=== PATIENT | male | born 1955 | race Caucasian/White ===

== ENCOUNTER 2017-12-06 00:40 | Inpatient (IN) ==
[2017-12-06] MEDS ORDERED: methylPREDNISolone 125 MG/2 ML VIAL IVP ONE (00:49)
[2017-12-06] MEDS ORDERED: Ipratropium/Albuterol Neb 3 ML IH ONE (00:49)
--- NOTE | 2017-12-06 00:57 | Emergency Department Note ---
Disposition Clinical Impression: COPD exacerbation Disposition: Admitted As Inpatient Condition: Good Time of Disposition: 03:39 SOB HPI - General Chief Complaint: ED Shortness of Breath/Dyspnea Stated Complaint: Luis Time Seen by Provider: 12/06/17 00:45 Source: patient, EMS Mode of arrival: EMS Limitations: no limitations Nursing Notes Reviewed: Yes Vital Signs Reviewed: Yes - History of Present Illness Patient is a 62-year-old male with past medical history of COPD. He presents today due to shortness of breath. He states that he has been doing multiple chores at home today, has exerted himself. Just prior to arrival, he had sudden onset shortness of breath, denies any chest pain, nausea, vomiting, fevers, diarrhea, abdominal pain. He says that he usually uses 2-3 L nasal cannula oxygen at home 24 hours a day. EMS says that when they picked him up, he was satting around 98% on 2 L. They transitioned him over to CPAP for work of breathing. They state that his work of breathing improved dramatically. - Related Data Home Medications Medication Instructions Recorded Confirmed Albuterol Sulfate [Albuterol 2 puff IH QID PRN 05/18/16 12/06/17 Inhaler] Budesonide/Formoterol 160/4.5 2 puff IH BIDR 05/18/16 12/06/17 [Symbicort 160/4.5] Ipratropium/Albuterol Neb [Duoneb] 3 ml IH QID 05/18/16 12/06/17 Oxygen 2 l NS AD 05/18/16 12/06/17 Roflumilast [Daliresp] 500 mcg PO DAILY 05/18/16 12/06/17 Tiotropium [Spiriva] 18 mcg IH 0700 05/18/16 12/06/17 predniSONE [PredniSONE] 5 mg PO BID 05/18/16 12/06/17 Allergies Allergy/AdvReac Type Severity Reaction Status Date / Time No Known Allergies Allergy Verified 05/18/16 13:10 All systems ED: reviewed and negative except as stated. Constitutional: Denies: fever Cardiovascular: Denies: chest pain Respiratory: Reports: dyspnea. Denies: cough Gastrointestinal: Denies: abdominal pain Genitourinary: Denies: urgency, dysuria, frequency Neurological: Denies: headache, weakness, numbness, paresthesias Past Medical History - Past Medical History Attestation: Yes The following information was validated with the patient. Source: patient Medical history: Reports: COPD Surgical history: 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 Psychiatric history: Reports: no psych history - Social History Smoking Status: Former smoker Smokeless Tobacco Status: No Alcohol use: Reports: none Drug use: Reports: none Physical Exam - General Limitations: no limitations General appearance: alert, in no apparent distress - Head Head exam: atraumatic, normocephalic, normal inspection - Eye Eye exam: Present: normal appearance, PERRL, EOMI - ENT ENT exam: normal exam, normal oropharynx, mucous membranes moist - Neck Neck exam: Present: normal inspection, full ROM, trachea midline - Chest Chest inspection: Present: normal inspection, symmetric chest wall rise - Respiratory Respiratory exam: Present: wheezes (Mild wheeze throughout all lung hernandez), accessory muscle use ([place] moderate) - Cardiovascular Cardiovascular exam: Present: normal rhythm, tachycardia, normal heart sounds - Abdominal Exam Abdominal exam: Present: soft, Non-Tender. Absent: tenderness, distention, guarding, rebound, rigidity - Extremities Exam Extremities exam: Present: normal inspection, full ROM. Absent: tenderness, pedal edema - Neurological Exam Neurological exam: Present: alert, oriented X3 - Psychiatric Psychiatric exam: Present: normal affect, normal mood - Skin Skin exam: Present: warm, dry, intact, normal color Course Course Narrative: We will give the patient DuoNeb 3, Solu-Medrol. Patient was transitioned over to BiPAP here. We will obtain basic blood work, EKG, chest x-ray, troponin, blood cultures and lactate, vBG. 03:37 troponin negative. EKG shows no acute ST changes. Chest x-ray shows no acute cardiopulmonary process. Patient remains on BiPAP at this time. Initial VBG showed CO2 in the 50s but pH of 7.39. Patient will be admitted for COPD exacerbation. Chest X-Ray 12/06/17 00:48 IMPRESSION: 1. No acute cardiopulmonary disease. D/ / Bebo Smith MD / Bebo Smith MD Interpreting Provider: Bebo Smith MD Vital Signs Temperature 97.7 F 12/06/17 00:43 Pulse Rate 108 12/06/17 00:43 Respiratory Rate 17 12/06/17 00:43 Blood Pressure 156/92 12/06/17 00:43 O2 Sat by Pulse Oximetry 97 12/06/17 00:43 Temperature 98.1 F 12/06/17 04:16 Pulse Rate 93 12/06/17 04:16 Respiratory Rate 20 12/06/17 04:21 Blood Pressure 145/87 12/06/17 04:16 O2 Sat by Pulse Oximetry 92 12/06/17 04:30 Oxygen Delivery Oxygen Delivery CPAP Mask O2 Shortness of Breath/Dyspnea - [facility] Narrative Medical decision making narrative: We will give the patient DuoNeb 3, Solu-Medrol. Patient was transitioned over to BiPAP here. We will obtain basic blood work, EKG, chest x-ray, troponin, blood cultures and lactate, vBG. 03:37 troponin negative. EKG shows no acute ST changes. Chest x-ray shows no acute cardiopulmonary process. Patient remains on BiPAP at this time. Initial VBG showed CO2 in the 50s but pH of 7.39. Patient will be admitted for COPD exacerbation. - Medical Records Medical records reviewed: Yes I reviewed the patient's medical records. - Lab Data Lab results reviewed: Yes I reviewed the patient's lab results. Result diagrams: 12/06/17 00:48 12/06/17 00:48 Lab Results 12/06/17 12/06/17 12/06/17 Range/Units 00:48 00:48 00:48 WBC 7.3 (4.3-11.1) K/mcL RBC 3.83 L (4.19-5.50) M/mcL Hgb 13.3 (12.9-16.9) g/dL Hct 38.0 (37.5-50.1) % MCV 99.2 (83.0-100.0) fL MCH 34.7 H (28.0-33.3) pg MCHC 35.0 (31.6-35.5) g/dL RDW 14.1 (11.5-14.5) % Plt Count 364 (140-400) K/mcL MPV 9.4 (9.4-12.4) fL Immature Gran % 0.7 (0-4) % Seg Neutrophils % 72.6 % Lymphocytes % 17.3 % Monocytes % 8.2 % Eosinophils % 0.5 % Basophils % 0.7 % Neutrophils # 5.3 (1.6-8.9) K/mcL Lymphocytes # 1.3 (0.6-4.6) K/mcL Monocytes # 0.6 (0.0-1.3) K/mcL Eosinophils # 0.0 (0.0-0.6) K/mcL Basophils # 0.1 (0.0-0.2) K/mcL VBG pH (7.32-7.42) pH Units VBG pCO2 (41-51) mmHg VBG pO2 (25-50) mmHg VBG HCO3 (21-27) mEq/L Sodium 136 (136-145) mEq/L Potassium 3.8 (3.5-5.1) mEq/L Chloride 96 L (98-107) mEq/L Carbon Dioxide 29 (23-29) mEq/L BUN 11 (8-23) mg/dL Creatinine 0.97 (0.70-1.30) mg/dL Est GFR ( Amer) > 60 (> 60) Est GFR (Non-Af Amer) > 60 (> 60) BUN/Creatinine Ratio 11 (6-26) Glucose 119 H (70-105) mg/dL Calculated Osmolality 283 (280-300) Lactic Acid 2.2 (0.5-2.2) mmol/L Calcium 9.4 (8.6-10.3) mg/dL Troponin I < 0.03 (< 0.04) ng/mL B-Natriuretic Peptide (Less than 100) pg/mL 12/06/17 12/06/17 12/06/17 Range/Units 00:48 01:02 02:29 WBC (4.3-11.1) K/mcL RBC (4.19-5.50) M/mcL Hgb (12.9-16.9) g/dL Hct (37.5-50.1) % MCV (83.0-100.0) fL MCH (28.0-33.3) pg MCHC (31.6-35.5) g/dL RDW (11.5-14.5) % Plt Count (140-400) K/mcL MPV (9.4-12.4) fL Immature Gran % (0-4) % Seg Neutrophils % % Lymphocytes % % Monocytes % % Eosinophils % % Basophils % % Neutrophils # (1.6-8.9) K/mcL Lymphocytes # (0.6-4.6) K/mcL Monocytes # (0.0-1.3) K/mcL Eosinophils # (0.0-0.6) K/mcL Basophils # (0.0-0.2) K/mcL VBG pH 7.39 (7.32-7.42) pH Units VBG pCO2 52 H (41-51) mmHg VBG pO2 76 H (25-50) mmHg VBG HCO3 31 H (21-27) mEq/L Sodium (136-145) mEq/L Potassium (3.5-5.1) mEq/L Chloride (98-107) mEq/L Carbon Dioxide (23-29) mEq/L BUN (8-23) mg/dL Creatinine (0.70-1.30) mg/dL Est GFR ( Amer) (> 60) Est GFR (Non-Af Amer) (> 60) BUN/Creatinine Ratio (6-26) Glucose (70-105) mg/dL Calculated Osmolality (280-300) Lactic Acid 2.2 (0.5-2.2) mmol/L Calcium (8.6-10.3) mg/dL Troponin I (< 0.04) ng/mL B-Natriuretic Peptide 20 (Less than 100) pg/mL - Radiology Data Radiology results reviewed: Yes I reviewed the patient's radiology results. Chest X-Ray 12/06/17 00:48 IMPRESSION: 1. No acute cardiopulmonary disease. D/ / Bebo Smith MD / Bebo Smith MD Interpreting Provider: Bebo Smith MD - EKG Data EKG attestation: Yes I reviewed and interpreted this EKG. EKG results narrative: 12/06/2017 00:48. Sinus tachycardia. Rate 106. [place] 167. QRS 92. QTC 397. Mild left axis deviation. No acute ST elevation or depression. S.B.A.R. - S.B.A.R. Situation: Demographics, MOA Background: Presenting Complaint, Relevant PMH, Meds, & Allergies Assessment: Vital Signs, Course and respsone to treatment, Exam Concerns, Patient/Family Expectation, Pertinant Lab Results Recommendation: Barrier(s) to disposition, Recommendation based on pending studies, treatments, or consults S.B.A.R. Report Given to: Dr. Mcwilliams Attestation Statement - Attestation Attestation: I examined this patient and my medical decision-making was reviewed with the Resident Physician. I agree with the documented findings, disposition and treatment plan as described except to the extent set forth below. Findings consistent with bronchitis. Patient was placed on cpap by prehospial providers and transitioned to bipap on arrival. Patient improved on bipap. Will admit for acute on chronic respiratory failure. Steroids, bronchodilators initiated.
[2017-12-06 00:59] LABS: Basophils # 0.1 K/mcL (0.0-0.2); Basophils % 0.7 %; Eosinophils % 0.5 %; Hemoglobin 13.3 g/dL (12.9-16.9); Immature Granulocytes % 0.7 % (0-4); Lymphocytes # 1.3 K/mcL (0.6-4.6); Lymphocytes % 17.3 %; Mean Corpuscular Hemoglobin 34.7 pg (28.0-33.3); Mean Corpuscular Volume 99.2 fL (83.0-100.0); Mean Platelet Volume 9.4 fL (9.4-12.4); Monocytes # 0.6 K/mcL (0.0-1.3); Monocytes % 8.2 %; Neutrophils # 5.3 K/mcL (1.6-8.9); Platelet Count 364 K/mcL (140-400); Red Blood Count 3.83 M/mcL (4.19-5.50); Red Cell Distribution Width 14.1 % (11.5-14.5); Segmented Neutrophils % 72.6 %
[2017-12-06 01:06] LABS: VBG HCO3 31 mEq/L (21-27); VBG PCO2 52 mmHg (41-51); VBG PH 7.39 pH Units (7.32-7.42); VBG PO2 76 mmHg (25-50)
[2017-12-06 01:28] LABS: BUN/Creatinine Ratio 11 (6-26); Blood Urea Nitrogen 11 mg/dL (8-23); Calcium 9.4 mg/dL (8.6-10.3); Carbon Dioxide 29 mEq/L (23-29); Chloride 96 mEq/L (98-107); Glucose 119 mg/dL (70-105); Osmolality,Calculated 283 (280-300); Potassium 3.8 mEq/L (3.5-5.1); Sodium 136 mEq/L (136-145); Troponin I < 0.03 ng/mL (< 0.04); eGFR For African Americans > 60 (> 60); eGFR For Non-African Americans > 60 (> 60)
[2017-12-06] MEDS ORDERED: Naloxone 0.4 MG/ML INJ IVP PRN (03:36)
--- NOTE | 2017-12-06 03:41 | Internal Med History&Physical ---
Date of Encounter: 12/06/17 Time of Encounter: 03:39 Internal Medicine - H&P: HPI Chief complaint: Shortness of breath Admitted From: Emergency Dept Plans for Post Hospital Care: Home History of present illness: Mr. Arana is a 62 year old male with history of COPD on home O2 (2-3 L) who presents with sudden onset of shortness of breath from earlier today. The patient lives alone and was doing some chores at home and missed his nebulizers treatment. He then became suddenly short of breath and called EMS. He denies any cough. He denies any fever. When EMS arrived he was in significant distress and ended up going on BiPAP. By the time he arrived he was not hypoxic and was given multiple breathing treatments and IV Solu-Medrol. He denies any fever, chills, nausea, vomiting, chest pain, abdominal pain, diarrhea , constipation, urinary symptoms, or neurological symptoms. Chest x-ray failed to show any infiltrates. Laboratory workup was mostly unremarkable. An ABG showed PCO2 52. EKG with sinus tachycardia with no ST or T-wave changes. Patient was started feel better by the time I saw him. Past Med Surg Social Fam HX - Past Medical History Medical history: COPD Psychiatric history: no psych history - Past Surgical History Surgical History: cataract - Social History Smoking Status: Former smoker Smokeless Tobacco Status: No Alcohol use: none Drug use: none - Family History Mother Living Status: Hx Family Cardiac Disorders: Yes (cardiomyopathy) Father Hx Family Cardiac Disorders: Yes (MT) Hx Family Neurologic Disorders: Yes (Stroke) Internal Medicine - H&P: Meds Albuterol Sulfate [Albuterol Inhaler] 2 puff IH QID PRN 05/18/16 [History] Budesonide/Formoterol 160/4.5 [Symbicort 160/4.5] 2 puff IH BIDR 05/18/16 [ History] Ipratropium/Albuterol Neb [Duoneb] 3 ml IH QID 05/18/16 [History] Oxygen 2 l NS AD 05/18/16 [History] Roflumilast [Daliresp] 500 mcg PO DAILY 05/18/16 [History] Tiotropium [Spiriva] 18 mcg IH 0700 05/18/16 [History] predniSONE [PredniSONE] 5 mg PO BID 05/18/16 [History] 3 Allergy/AdvReac Type Severity Reaction Status Date / Time No Known Allergies Allergy Verified 05/18/16 13:10 All Systems PM: A 10-system review of systems was performed and is negative for pertinent findings except as documented above in the HPI. Review of systems: All systems reviewed are negative except as mentioned - Constitutional Vitals: Temp Pulse Resp BP Pulse Ox 97.7 F 71 16 126/83 100 12/06/17 00:43 12/06/17 03:01 12/06/17 03:29 12/06/17 03:29 12/06/17 03:01 Exam: GEN: NAD HEENT: AT, NC, No cyanosis, oral mucosa is moist, No JVD Lymphatics: No lymphadenoapthy Eyes: Extrocular muscles intact, anicteric CVS:RRR. S1, S2, No m/r/g RESP: Diminished with expiratory wheezes posteriorly ABD: Soft, NT, ND, +BS EXT: No edema, No rashes, 2+ DP NEURO: Nonfocal, CN II-XII intact, No focal motor or sensory deficits Psych: Cooperative, Not anxious or depressed Internal Med - H&P Results - Labs CBC & Chem 7: 12/06/17 00:48 12/06/17 00:48 - Assessment and plan (1) COPD exacerbation Current Visit: No Status: Acute Assessment and plan: Will treat for COPD exacerbation for now with scheduled nebs. O2 support. IV solumedrol Q8hrs. oral azithromax. c/w rest of home COPD inhalers. (2) Chronic respiratory failure Current Visit: No Status: Chronic Assessment and plan: Patient on 2-3 L O2 chronically. He is on that here satting well. He had a CT chest last month that showed some suspicious findings. I have asked the ED staff to get a CTA chest to rule out a PE and see if there is any changes to the findings of the previous CT. Prevous CT chest showed persistent groundglass and peribronchovascular nodular consolidative opacities measuring up to 0.4 cm in the basilar segments of the left lower lobe, New 2.3 cm x 0.8 cm wedge- shaped consolidative opacity in the lateral basilar segment of the left lower lobe. Mild to moderate bronchial wall thickening with patchy airway secretions , suggesting bronchitis, and Unchanged solid nodules in the right upper and bilateral lower lobes measure up to 0.2 cm. Qualifiers: Respiratory failure complication: hypoxia Qualified Code(s): J96.11 - Chronic respiratory failure with hypoxia (3) Pulmonary nodule Current Visit: Yes Status: Acute Assessment and plan: chronic. Will f/u on CTA chest (4) DVT prophylaxis Current Visit: Yes Status: Acute Assessment and plan: heparin SQ - Time Spent With Patient Total time spent is greater than 50% in coordination of care (as documented) at patient's floor/unit and/or counseling patient:
[2017-12-06] MEDS ORDERED: Isovue-370 500 ML INFUS..BTL IV ONE (03:46)
[2017-12-06] MEDS: Ipratropium/Albuterol Neb 3 ML IH SCH ×4 (04:21→22:21)
[2017-12-06] MEDS: Azithromycin 250 MG TABLET PO SCH (05:59)
[2017-12-06] MEDS: *HR* Heparin 5,000 UNIT/ML VIAL SQ SCH ×3 (06:00→21:17)
[2017-12-06] MEDS: methylPREDNISolone 125 MG/2 ML VIAL IVP SCH ×2 (09:01→15:12)
[2017-12-06] MEDS: Roflumilast [Daliresp] 500 MCG PO SCH (09:02)
[2017-12-06] MEDS: Budesonide/Formoterol 160/4.5 MDI IH SCH ×2 (10:25→22:21)
[2017-12-06] MEDS: Acyclovir 200 MG CAPSULE PO SCH ×2 (13:19→21:17)
--- NOTE | 2017-12-06 13:59 | Internal Med Progress Note ---
Date of Encounter: 12/06/17 Time of Encounter: 12:20 - Assessment and plan (1) COPD exacerbation Current Visit: No Status: Acute Assessment and plan: Improving slowly start tapering IV steroids cont Duoneb cont O2 (2) Acute bronchitis Current Visit: Yes Status: Acute Assessment and plan: Mostly bacterial cont prophylactic abx Azithromycin Qualifiers: Bronchitis organism: unspecified organism Qualified Code(s): J20.9 - Acute bronchitis, unspecified (3) Chronic respiratory failure Current Visit: No Status: Chronic Assessment and plan: He does have acute on chronic hypoxic resp fialure currently on 4 lit O2 Qualifiers: Respiratory failure complication: hypoxia Qualified Code(s): J96.11 - Chronic respiratory failure with hypoxia (4) DVT prophylaxis Current Visit: Yes Status: Acute Assessment and plan: heparin SQ (5) Pulmonary nodule Current Visit: Yes Status: Acute Assessment and plan: CTA of chest did now show any acute nodule now - Time Spent With Patient Total time spent is greater than 50% in coordination of care (as documented) at patient's floor/unit and/or counseling patient: - Subjective Interval history: Mr. Arana is a 62 year old male with history of COPD on home O2 (2-3 L) who presented to ER with worsening SOB. He does have cough with greenish expectoration. Pt was admitted here for acute COPD exacerbation and acute bronchitis.Pt is also hypoxic required 4 lit O2 now. Pt stated he is feeling little better today. - Constitutional Vitals: Temp Pulse Resp BP Pulse Ox 97.6 F 90 15 167/93 91 12/06/17 10:27 12/06/17 10:27 12/06/17 10:33 12/06/17 10:27 12/06/17 10:33 General appearance: Present: mild distress, A&O X 3, answers questions appropriately - Head Head exam: Present: atraumatic, normal inspection - Neck Neck exam general surgery: Present: supple - Respiratory Respiratory exam: Present: decreased breath sounds, wheezes (moderate to severe) . Absent: rales, respiratory distress, rhonchi - Cardiovascular Cardiovascular exam: Present: RRR, +S1, +S2. Absent: tachycardia - GI/Abdominal GI/Abdominal exam: Present: normal bowel sounds, soft. Absent: rebound, rigid, tenderness - Extremities Exam Extremities exam: Absent: calf tenderness, pedal edema, tenderness - Back Exam Back exam: Absent: CVA tenderness (L), CVA tenderness (R) - Neurological Exam Neurological exam: Present: alert, oriented X3 - Psychiatric Psychiatric exam: Present: normal affect Internal Medicine: Result - Labs CBC & Chem 7: 12/06/17 00:48 12/06/17 00:48 - Impressions Impressions Chest CTA 12/06/17 03:46 IMPRESSION: 1. No evidence of pulmonary embolism. 2. Moderate emphysema. 3. Mild airway wall thickening of the lower lobes. Correlate for possible mild infectious or inflammatory process. D/ / 12/06/2017 07:38:43 Bebo Smith MD / [facility] Interpreting Provider: Bebo Smith MD Consult Discharge Plan - Plan Referrals: Maria Victoria Garcia MD [Primary Care Provider] -
--- NOTE | 2017-12-06 16:58 | Electrocardiograph Report ---
[address] [address] Test Date: 2017-12-06 Pat Name: Ulysses Arana Department: 102 Room: 3A44 Gender: M Dispatcher Service Or Work: Natalio : 1955 Requested By: Vishal Hennessy Order Number: [id number] Reading MD: Alise Coelho Measurements Intervals [place] Rate: 106 P: 81 SC: 167 QRS: 38 QRSD: 92 T: 78 QT: 335 QTc: 397 Interpretive Statements SINUS TACHYCARDIA POSSIBLE RIGHT VENTRICULAR CONDUCTION DELAY [RSR (QR) IN V1/V2] ABNORMAL RHYTHM ECG Electronically Signed On 12-06-2017 16:57:30 EDT by Alise Coelho
[2017-12-07] MEDS: methylPREDNISolone 125 MG/2 ML VIAL IVP SCH ×2 (00:31→08:18)
[2017-12-07] MEDS: Ipratropium/Albuterol Neb 3 ML IH SCH ×6 (03:59→23:35)
[2017-12-07] MEDS: *HR* Heparin 5,000 UNIT/ML VIAL SQ SCH ×3 (05:29→22:11)
[2017-12-07 06:42] LABS: Hematocrit 36.8 % (37.5-50.1); Hemoglobin 12.2 g/dL (12.9-16.9); Immature Granulocytes % 0.5 % (0-4); Lymphocytes # 0.3 K/mcL (0.6-4.6); Lymphocytes % 3.4 %; Mean Corpuscular HGB Conc 33.2 g/dL (31.6-35.5); Mean Corpuscular Hemoglobin 33.2 pg (28.0-33.3); Mean Corpuscular Volume 100.3 fL (83.0-100.0); Monocytes # 0.3 K/mcL (0.0-1.3); Monocytes % 2.9 %; Platelet Count 370 K/mcL (140-400); Red Blood Count 3.67 M/mcL (4.19-5.50); Red Cell Distribution Width 14.6 % (11.5-14.5); Segmented Neutrophils % 93.2 %
[2017-12-07 06:59] LABS: BUN/Creatinine Ratio 20 (6-26); Blood Urea Nitrogen 13 mg/dL (8-23); Calcium 9.6 mg/dL (8.6-10.3); Carbon Dioxide 31 mEq/L (23-29); Chloride 100 mEq/L (98-107); Glucose 158 mg/dL (70-105); Magnesium 2.2 mg/dL (1.6-2.6); Osmolality,Calculated 285 (280-300); Sodium 136 mEq/L (136-145); eGFR For African Americans > 60 (> 60); eGFR For Non-African Americans > 60 (> 60)
[2017-12-07] MEDS: Azithromycin 250 MG TABLET PO SCH (08:19)
[2017-12-07] MEDS: Roflumilast [Daliresp] 500 MCG PO SCH (08:19)
[2017-12-07] MEDS: Acyclovir 200 MG CAPSULE PO SCH ×2 (08:19→22:10)
--- NOTE | 2017-12-07 10:23 | Internal Med Progress Note ---
Date of Encounter: 12/07/17 Time of Encounter: 10:16 - Assessment and plan (1) COPD exacerbation Current Visit: No Status: Acute Assessment and plan: Improving slowly start tapering IV steroids cont Duoneb cont O2 Since pt does take acetyl cysteine tabs PO at home, will start him on INH therapy here (2) Acute bronchitis Current Visit: Yes Status: Acute Assessment and plan: Mostly bacterial cont prophylactic abx Azithromycin Qualifiers: Bronchitis organism: unspecified organism Qualified Code(s): J20.9 - Acute bronchitis, unspecified (3) Chronic respiratory failure Current Visit: No Status: Chronic Assessment and plan: He does have acute on chronic hypoxic resp fialure currently on 3 lit O2 improving slowly Qualifiers: Respiratory failure complication: hypoxia Qualified Code(s): J96.11 - Chronic respiratory failure with hypoxia (4) DVT prophylaxis Current Visit: Yes Status: Acute Assessment and plan: heparin SQ (5) Pulmonary nodule Current Visit: Yes Status: Acute Assessment and plan: CTA of chest did now show any acute nodule now - Time Spent With Patient Total time spent is greater than 50% in coordination of care (as documented) at patient's floor/unit and/or counseling patient: - Subjective Interval history: Mr. Arana is a 62 year old male with history of COPD on home O2 (2-3 L) who presented to ER with worsening SOB. He does have cough with greenish expectoration. Pt was admitted here for acute COPD exacerbation and acute bronchitis.Pt is also hypoxic required 4 lit O2 now. Pt stated he is feeling little better today. He is currently on 3 lit O2. Denied any CP . No abd pain. Pt still c/o moderate to severe SOB / HOLLINS - Constitutional Vitals: Temp Pulse Resp BP Pulse Ox 98.1 F 85 16 148/85 97 12/07/17 09:00 12/07/17 09:00 12/07/17 09:00 12/07/17 09:00 12/07/17 09:00 General appearance: Present: mild distress, A&O X 3, answers questions appropriately - Head Head exam: Present: atraumatic, normal inspection - Neck Neck exam general surgery: Present: supple - Respiratory Respiratory exam: Present: decreased breath sounds, wheezes (moderate to severe) . Absent: rales, respiratory distress, rhonchi - Cardiovascular Cardiovascular exam: Present: RRR, +S1, +S2. Absent: tachycardia - GI/Abdominal GI/Abdominal exam: Present: normal bowel sounds, soft. Absent: rebound, rigid, tenderness - Extremities Exam Extremities exam: Absent: calf tenderness, pedal edema, tenderness - Back Exam Back exam: Absent: CVA tenderness (L), CVA tenderness (R) - Neurological Exam Neurological exam: Present: alert, oriented X3 - Psychiatric Psychiatric exam: Present: normal affect, normal mood Internal Medicine: Result - Labs CBC & Chem 7: 12/07/17 05:40 12/07/17 05:40 Labs: Short CBC 12/07/17 Range/Units 05:40 WBC 9.7 (4.3-11.1) K/mcL Hgb 12.2 L (12.9-16.9) g/dL Hct 36.8 L (37.5-50.1) % Plt Count 370 (140-400) K/mcL Neutrophils # 9.0 H (1.6-8.9) K/mcL BMP 12/07/17 05:40 Sodium 136 Potassium 4.0 Chloride 100 Carbon Dioxide 31 H BUN 13 Creatinine 0.64 L Glucose 158 H Calcium 9.6 Consult Discharge Plan - Plan Referrals: Maria Victoria Garcia MD [Primary Care Provider] - 12/15/17 3:00 pm
[2017-12-07] MEDS: Budesonide/Formoterol 160/4.5 MDI IH SCH ×2 (10:56→20:10)
[2017-12-07] MEDS: Acetylcysteine 10% 2 ML INHSOL IH SCH ×3 (10:57→23:36)
[2017-12-07] MEDS: MethylPREDNISolone 40 MG/ML VIAL IVP SCH (15:03)
[2017-12-08] MEDS: Ipratropium/Albuterol Neb 3 ML IH SCH ×6 (03:36→23:06)
[2017-12-08] MEDS: MethylPREDNISolone 40 MG/ML VIAL IVP SCH ×2 (05:18→17:41)
[2017-12-08] MEDS: *HR* Heparin 5,000 UNIT/ML VIAL SQ SCH ×3 (05:18→21:04)
[2017-12-08] MEDS: Acetylcysteine 10% 2 ML INHSOL IH SCH (07:30)
[2017-12-08] MEDS: Budesonide/Formoterol 160/4.5 MDI IH SCH ×2 (07:30→20:18)
[2017-12-08] MEDS: Azithromycin 250 MG TABLET PO SCH (09:01)
[2017-12-08] MEDS: Acyclovir 200 MG CAPSULE PO SCH ×2 (09:02→21:03)
[2017-12-08] MEDS: Roflumilast [Daliresp] 500 MCG PO SCH (09:02)
[2017-12-08] MEDS ORDERED: MethylPREDNISolone 40 MG/ML VIAL IVP SCH (14:00)
--- NOTE | 2017-12-08 14:54 | Internal Med Progress Note ---
Date of Encounter: 12/08/17 Time of Encounter: 14:50 - Assessment and plan (1) COPD exacerbation Current Visit: No Status: Acute Assessment and plan: Improving slowly cont Duoneb Change NAC to PO Taper Solu Medrol Taper O2 back to baseline at home (2L) If patient tolerates Solu medrol and oxygen weaning, possibly home tomorrow. (2) Acute bronchitis Current Visit: Yes Status: Acute Assessment and plan: Mostly bacterial cont prophylactic abx Azithromycin Qualifiers: Bronchitis organism: unspecified organism Qualified Code(s): J20.9 - Acute bronchitis, unspecified (3) Chronic respiratory failure Current Visit: No Status: Chronic Assessment and plan: Decrease O2 rate patient currently O2 saturating 99% and he probably runs lower at home. Qualifiers: Respiratory failure complication: hypoxia Qualified Code(s): J96.11 - Chronic respiratory failure with hypoxia (4) Pulmonary nodule Current Visit: Yes Status: Acute Assessment and plan: CTA of chest did now show any acute nodule now (5) DVT prophylaxis Current Visit: Yes Status: Acute Assessment and plan: heparin SQ - Time Spent With Patient Total time spent is greater than 50% in coordination of care (as documented) at patient's floor/unit and/or counseling patient: - Subjective Interval history: Patient states breathing is better. Denies cp, fevers/chills. Has been able to ambulate a little today. O2 is 3.5 L. - Constitutional Vitals: Temp Pulse Resp BP Pulse Ox 97.1 F L 84 17 141/92 99 12/08/17 07:33 12/08/17 07:33 12/08/17 11:14 12/08/17 07:33 12/08/17 11:14 General appearance: Present: mild distress, A&O X 3, answers questions appropriately - Head Head exam: Present: atraumatic, normocephalic - Eye Eye exam: Present: PERRL, conjuntiva pink, sclera anicteric Pupils: Present: PERRL - Neck Neck exam general surgery: Present: supple, trachea midline. Absent: lymphadenopathy - Respiratory Respiratory exam: Present: wheezes. Absent: accessory muscle use, rales, rhonchi - Cardiovascular Cardiovascular exam: Present: RRR, +S1, +S2. Absent: diastolic murmur, gallop, rubs, systolic murmur - GI/Abdominal GI/Abdominal exam: Present: normal bowel sounds, soft, no peritoneal signs. Absent: distended, tenderness - Extremities Exam Extremities exam: Present: warm, radial pulses palpable and symmetrical. Absent : calf tenderness, cyanotic, pedal edema - Neurological Exam Neurological exam: Present: CN II-XII intact, oriented X3, no focal deficits. Absent: pronater drift, facial droop, speech deficit - Skin Skin exam: Present: dry, intact Internal Medicine: Result - Labs CBC & Chem 7: 12/07/17 05:40 12/07/17 05:40 Consult Discharge Plan - Plan Referrals: Maria Victoria Garcia MD [Primary Care Provider] - 12/15/17 3:00 pm
[2017-12-08] MEDS: *HR* Acetylcysteine 20% 600 MG/3 ML ORAL SYRINGE PO SCH (22:07)
[2017-12-09] MEDS: Ipratropium/Albuterol Neb 3 ML IH SCH ×3 (04:23→11:03)
[2017-12-09] MEDS: MethylPREDNISolone 40 MG/ML VIAL IVP SCH (06:18)
[2017-12-09] MEDS: *HR* Heparin 5,000 UNIT/ML VIAL SQ SCH (06:19)
[2017-12-09 06:43] VITALS: BP 149/89
[2017-12-09] MEDS: Budesonide/Formoterol 160/4.5 MDI IH SCH (07:59)
[2017-12-09] MEDS: Azithromycin 250 MG TABLET PO SCH (09:37)
[2017-12-09] MEDS: Roflumilast [Daliresp] 500 MCG PO SCH (09:37)
[2017-12-09] MEDS: Acyclovir 200 MG CAPSULE PO SCH (09:37)
[2017-12-09] MEDS: *HR* Acetylcysteine 20% 600 MG/3 ML ORAL SYRINGE PO SCH (10:01)
--- NOTE | 2017-12-09 12:50 | Discharge Summary ---
- NOTES TO OUTPATIENT PROVIDER Notes to Outpatient Provider: Follow-up with primary physician in 4 days (after holiday weekend). Date of Encounter: 12/09/17 Time of Encounter: 12:48 - Discharge Diagnosis (1) COPD exacerbation Priority: Primary Status: Acute (2) Acute bronchitis Priority: Secondary Status: Acute Qualifiers: Bronchitis organism: unspecified organism Qualified Code(s): J20.9 - Acute bronchitis, unspecified (3) Chronic respiratory failure Priority: Secondary Status: Chronic Qualifiers: Respiratory failure complication: hypoxia Qualified Code(s): J96.11 - Chronic respiratory failure with hypoxia (4) Pulmonary nodule Priority: Secondary Status: Acute (5) DVT prophylaxis Priority: Secondary Status: Acute Hospital course: Mr. Arana is a 62 year old male with history of COPD on home O2 (2-3 L) who presents with sudden onset of shortness of breath from earlier today. The patient lives alone and was doing some chores at home and missed his nebulizers treatment. He then became suddenly short of breath and called EMS. He denies any cough. He denies any fever. When EMS arrived he was in significant distress and ended up going on BiPAP. By the time he arrived he was not hypoxic and was given multiple breathing treatments and IV Solu-Medrol. He denies any fever, chills, nausea, vomiting, chest pain, abdominal pain, diarrhea , constipation, urinary symptoms, or neurological symptoms. Chest x-ray failed to show any infiltrates. Laboratory workup was mostly unremarkable. An ABG showed PCO2 52. EKG with sinus tachycardia with no ST or T-wave changes. He was started on Solu Medrol, Azithromycin, and increased oxygen. Patient started improving and was able to be tapered steroids and weaned oxygen back to his home level. He was ambulating in the hallway and stated is feeling better than he has in a while. He was discharged home in stable condition to finish a Prednisone taper. - Time Spent with Patient Total time spent providing and/or coordinating discharge services: - Discharge Medications Prescriptions: predniSONE [PredniSONE] 20 mg PO DAILY #24 tablet Home Medications: Albuterol Sulfate [Albuterol Inhaler] 2 puff IH QID PRN 05/18/16 [History] Budesonide/Formoterol 160/4.5 [Symbicort 160/4.5] 2 puff IH BIDR 05/18/16 [ History] Ipratropium/Albuterol Neb [Duoneb] 3 ml IH QID 05/18/16 [History] Oxygen 2 l NS AD 05/18/16 [History] Roflumilast [Daliresp] 500 mcg PO DAILY 05/18/16 [History] Tiotropium [Spiriva] 18 mcg IH 0700 05/18/16 [History] predniSONE [PredniSONE] 5 mg PO BID 05/18/16 [History] Acetylcysteine [N-Fbdbkf-g-Cysteine] 600 mg PO BID 12/06/17 [History] Acyclovir [Zovirax] 200 mg PO BID 12/06/17 [History] predniSONE [PredniSONE] 20 mg PO DAILY #24 tablet 12/09/17 [Rx] Allergies/Adverse Reactions: 3 Allergy/AdvReac Type Severity Reaction Status Date / Time No Known Allergies Allergy Verified 05/18/16 13:10 Date of admission: 12/07/17 14:57 Primary care physician: Maria Victoria Garcia MD Discharging clinician: Bayron Mora - Constitutional Vitals: Temp Pulse Resp BP Pulse Ox 97.5 F L 70 16 149/89 91 12/09/17 06:33 12/09/17 06:33 12/09/17 11:03 12/09/17 06:33 12/09/17 11:03 General appearance: Present: mild distress, A&O X 3, answers questions appropriately - Head Head exam: Present: atraumatic, normocephalic - Eye Eye exam: Present: PERRL, conjuntiva pink, sclera anicteric Pupils: Present: PERRL - Neck Neck exam general surgery: Present: supple, trachea midline. Absent: lymphadenopathy - Respiratory Respiratory exam: Present: decreased breath sounds, wheezes. Absent: accessory muscle use, rales, rhonchi Additional comments: There is improving air exchange since yesterday - Cardiovascular Cardiovascular exam: Present: RRR, +S1, +S2. Absent: diastolic murmur, gallop, rubs, systolic murmur - GI/Abdominal GI/Abdominal exam: Present: normal bowel sounds, soft, no peritoneal signs. Absent: distended, tenderness - Extremities Exam Extremities exam: Present: warm, radial pulses palpable and symmetrical. Absent : calf tenderness, cyanotic, pedal edema - Neurological Exam Neurological exam: Present: CN II-XII intact, oriented X3, no focal deficits. Absent: pronater drift, facial droop, speech deficit - Skin Skin exam: Present: dry, intact - Patient Status Disposition: Home, Self-Care Condition: Good Functional capacity at discharge: independent ambulation Overall status at discharge: patient is back to baseline - Discharge Instructions Follow Up With: Maria Victoria Garcia MD [Primary Care Provider] - 12/15/17 3:00 pm - Diet and Activity Activity: increase activity as tolerated Diet: advance to your usual diet
== END 2017-12-09 14:02 | disposition home or self-care (01) | DRG 191 ==
LOC: 3ANU 00:40 → EMEROO 00:40 → 3ANU 03:58
PROVIDERS: ADMIT Family Medicine; ATTEND Family Medicine

== ENCOUNTER 2018-03-31 07:46 | Inpatient (IN) ==
[2018-03-31] MEDS ORDERED: methylPREDNISolone 125 MG/2 ML VIAL IVP ONE (07:49)
[2018-03-31] MEDS ORDERED: levoFLOXacin 750 MG TABLET PO ONE (07:49)
[2018-03-31] MEDS ORDERED: Ipratropium/Albuterol Neb 3 ML IH ONE (07:50)
[2018-03-31] MEDS ORDERED: Aspirin 81 MG TAB.CHEW PO STA (07:50)
--- NOTE | 2018-03-31 08:03 | Emergency Department Note ---
Disposition Clinical Impression: Acute exacerbation of chronic obstructive airways disease, Respiratory distress Disposition: Admitted As Inpatient Condition: Fair Forms: ED Satisfaction Letter General Adult HPI - General Chief complaint: ED Shortness of Breath/Dyspnea Stated complaint: BEENA Time Seen by Provider: 03/31/18 07:49 Source: patient, EMS Mode of arrival: EMS Limitations: no limitations Nursing Notes Reviewed: Yes Vital Signs Reviewed: Yes - History of Present Illness HPI Narrative: 62-year-old male with significant past medical history of COPD presenting to the emergency department chief complaint shortness of breath. According to the patient he woke up this morning and was having severe shortness of breath. When he woke up his oxygen saturation was in the mid 80s. Patient states last time he was admitted for COPD exacerbation was in November. Patient denies any fever , increased sputum production or chest pain. Patient states he tried nebulizer treatments, inhalers at home with no relief. He states for the past few days if he exerts himself in any way he becomes hypoxic in the mid 80s even on home 2 L nasal cannula. Pain Scale: 0 - Related Data Home Medications Medication Instructions Recorded Confirmed Albuterol Sulfate [Albuterol 2 puff IH QID PRN 05/18/16 03/31/18 Inhaler] Budesonide/Formoterol 160/4.5 2 puff IH BIDR 05/18/16 03/31/18 [Symbicort 160/4.5] Ipratropium/Albuterol Neb [Duoneb] 3 ml IH QID 05/18/16 03/31/18 Oxygen 2 l NS AD 05/18/16 03/31/18 Roflumilast [Daliresp] 500 mcg PO DAILY 05/18/16 03/31/18 Tiotropium [Spiriva] 18 mcg IH 0700 05/18/16 03/31/18 predniSONE [PredniSONE] 5 mg PO BID 05/18/16 03/31/18 Acetylcysteine 600 mg PO BID 12/06/17 03/31/18 [N-Sbrlpm-c-Cysteine] Acyclovir [Zovirax] 200 mg PO BID 12/06/17 03/31/18 Allergies Allergy/AdvReac Type Severity Reaction Status Date / Time No Known Allergies Allergy Verified 01/02/18 10:21 All systems ED: reviewed and negative except as stated. Constitutional: Denies: fever, chills, weakness Eyes: Reports: as per HPI ENT ED: Reports: as per HPI Cardiovascular: Reports: dyspnea on exertion. Denies: chest pain, palpitations Respiratory: Reports: cough, dyspnea, wheezes Gastrointestinal: Denies: abdominal pain, nausea, vomiting Genitourinary: Reports: as per HPI Musculoskeletal: Reports: as per HPI Integumentary: Denies: rash, abrasion Neurological: Denies: weakness, numbness, paresthesias Psychiatric: Reports: as per HPI Endocrine: Reports: as per HPI Hematological/Lymphatic: Reports: as per HPI Allergic/Immunologic: Reports: as per HPI Past Medical History - Past Medical History Attestation: Yes The following information was validated with the patient. Medical history: Reports: COPD, other Surgical history: 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 Psychiatric history: Reports: no psych history - Social History Smoking Status: Former smoker Smokeless Tobacco Status: No Alcohol use: Reports: occasionally Drug use: Reports: none Physical Exam - General Limitations: no limitations General appearance: alert, in no apparent distress - Head Head exam: atraumatic, normocephalic, normal inspection - Eye Eye exam: Present: normal appearance. Absent: scleral icterus, conjunctival injection - ENT ENT exam: normal exam, mucous membranes moist - Neck Neck exam: Present: normal inspection, full ROM. Absent: tenderness, meningismus - Chest Chest inspection: Present: normal inspection, symmetric chest wall rise. Absent : tenderness, rash - Respiratory Respiratory exam: Present: other (Coarse breath sounds throughout) - Cardiovascular Cardiovascular exam: Present: normal rhythm, tachycardia, normal heart sounds - Abdominal Exam Abdominal exam: Present: soft, Non-Tender. Absent: distention, guarding, rebound - Extremities Exam Extremities exam: Present: normal inspection, full ROM - Neurological Exam Neurological exam: Present: alert, oriented X3 - Psychiatric Psychiatric exam: Present: normal affect, normal mood - Skin Skin exam: Present: warm, intact Course Course Narrative: 62-year-old male presenting for shortness of breath. Patient has history of COPD. Physical exam patient is hypoxic in the low 90s on a nonrebreather with coarse breath sounds. He is also tachycardic in the low 100s. Otherwise patient is alert and oriented 3 in the room. Physical exam otherwise benign. We will obtain basic laboratory analysis along with chest x-ray, EKG provide the patient with 3 [id number] DuoNeb, steroids and Levaquin. Disposition most likely admission the pending results. Patient agrees this plan. - Reevaluation(s) Reevaluation #1: Patient's laboratory analysis shows leukocytosis 16.1 but otherwise benign. X- ray does not show any focal consolidation. Patient had multiple episodes of desaturation when he was sleeping down to mid to upper 70% therefore patient placed on BiPAP. Aeration significantly improved since. Due to patient's increased oxygen demand we will plan to admit him for further workup for COPD exacerbation. Patient is alert and oriented 3 in room with stable vital signs. Patient agrees with this plan. I spoke with the hospitalist on-call who agrees to accept this patient at this time Vital Signs Temperature 98.4 F 03/31/18 07:49 Pulse Rate 103 03/31/18 07:49 Respiratory Rate 24 03/31/18 07:49 Blood Pressure 158/86 03/31/18 07:49 O2 Sat by Pulse Oximetry 94 03/31/18 07:49 Temperature 98.4 F 03/31/18 07:49 Pulse Rate 106 03/31/18 09:05 Respiratory Rate 12 03/31/18 09:33 Blood Pressure 134/75 03/31/18 09:33 O2 Sat by Pulse Oximetry 96 03/31/18 09:33 Oxygen Delivery Oxygen Delivery Oximizer Medical Decision Making - Lab Data Result diagrams: 03/31/18 07:58 03/31/18 07:58 Lab Results 03/31/18 03/31/18 03/31/18 Range/Units 07:58 07:58 07:58 WBC 16.1 H (4.3-11.1) K/mcL RBC 3.75 L (4.19-5.50) M/mcL Hgb 12.6 L (12.9-16.9) g/dL Hct 38.0 (37.5-50.1) % MCV 101.3 H (83.0-100.0) fL MCH 33.6 H (28.0-33.3) pg MCHC 33.2 (31.6-35.5) g/dL RDW 14.3 (11.5-14.5) % Plt Count 338 (140-400) K/mcL MPV 9.0 L (9.4-12.4) fL Immature Gran % 0.4 (0-4) % Seg Neutrophils % 74.4 % Lymphocytes % 8.2 % Monocytes % 13.4 % Eosinophils % 3.1 % Basophils % 0.5 % Neutrophils # 12.0 H (1.6-8.9) K/mcL Lymphocytes # 1.3 (0.6-4.6) K/mcL Monocytes # 2.2 H (0.0-1.3) K/mcL Eosinophils # 0.5 (0.0-0.6) K/mcL Basophils # 0.1 (0.0-0.2) K/mcL PT (9.4-12.1) Seconds INR APTT (26.0-36.0) Seconds D-Dimer (0-500) ng/mLFEU Sodium 135 L (136-145) mEq/L Potassium 4.0 (3.5-5.1) mEq/L Chloride 97 L (98-107) mEq/L Carbon Dioxide 35 H (23-29) mEq/L BUN 15 (8-23) mg/dL Creatinine 0.78 (0.70-1.30) mg/dL Est GFR ( Amer) > 60 (> 60) Est GFR (Non-Af Amer) > 60 (> 60) BUN/Creatinine Ratio 19 (6-26) Glucose 101 (70-105) mg/dL Calculated Osmolality 281 (280-300) Lactic Acid 0.5 (0.5-2.2) mmol/L Calcium 9.7 (8.6-10.3) mg/dL Troponin I < 0.03 (< 0.04) ng/mL B-Natriuretic Peptide (Less than 100) pg/mL 03/31/18 03/31/18 Range/Units 07:58 07:58 WBC (4.3-11.1) K/mcL RBC (4.19-5.50) M/mcL Hgb (12.9-16.9) g/dL Hct (37.5-50.1) % MCV (83.0-100.0) fL MCH (28.0-33.3) pg MCHC (31.6-35.5) g/dL RDW (11.5-14.5) % Plt Count (140-400) K/mcL MPV (9.4-12.4) fL Immature Gran % (0-4) % Seg Neutrophils % % Lymphocytes % % Monocytes % % Eosinophils % % Basophils % % Neutrophils # (1.6-8.9) K/mcL Lymphocytes # (0.6-4.6) K/mcL Monocytes # (0.0-1.3) K/mcL Eosinophils # (0.0-0.6) K/mcL Basophils # (0.0-0.2) K/mcL PT 9.5 (9.4-12.1) Seconds INR 0.8 APTT 27.7 (26.0-36.0) Seconds D-Dimer 249 (0-500) ng/mLFEU Sodium (136-145) mEq/L Potassium (3.5-5.1) mEq/L Chloride (98-107) mEq/L Carbon Dioxide (23-29) mEq/L BUN (8-23) mg/dL Creatinine (0.70-1.30) mg/dL Est GFR ( Amer) (> 60) Est GFR (Non-Af Amer) (> 60) BUN/Creatinine Ratio (6-26) Glucose (70-105) mg/dL Calculated Osmolality (280-300) Lactic Acid (0.5-2.2) mmol/L Calcium (8.6-10.3) mg/dL Troponin I (< 0.04) ng/mL B-Natriuretic Peptide 19 (Less than 100) pg/mL - EKG Data EKG #1 EKG attestation: Yes I reviewed and interpreted this EKG. EKG results narrative: Sinus rhythm. 98 beats minute. MA interval 167, QRS 96, QTC 452. No sign of acute ST segment elevation or ischemia. Compared to previous EKG completed on 03/11/2018 no significant changes noted Attestation Statement - Attestation Attestation: I, Trenton Sykes DO, examined this patient [id number] and my medical decision-making was reviewed with Dr. Jeanie Orourke, Resident Physician. I agree with the documented findings, disposition and treatment plan as described except to the extent set forth below. Please see my progress notes for details.
[2018-03-31 08:09] LABS: Basophils # 0.1 K/mcL (0.0-0.2); Basophils % 0.5 %; Eosinophils # 0.5 K/mcL (0.0-0.6); Eosinophils % 3.1 %; Hemoglobin 12.6 g/dL (12.9-16.9); Immature Granulocytes % 0.4 % (0-4); Lymphocytes # 1.3 K/mcL (0.6-4.6); Lymphocytes % 8.2 %; Mean Corpuscular HGB Conc 33.2 g/dL (31.6-35.5); Mean Corpuscular Hemoglobin 33.6 pg (28.0-33.3); Mean Corpuscular Volume 101.3 fL (83.0-100.0); Monocytes # 2.2 K/mcL (0.0-1.3); Monocytes % 13.4 %; Platelet Count 338 K/mcL (140-400); Red Blood Count 3.75 M/mcL (4.19-5.50); Red Cell Distribution Width 14.3 % (11.5-14.5); Segmented Neutrophils % 74.4 %
[2018-03-31 08:15] LABS: INR 0.8; Prothrombin Time 9.5 Seconds (9.4-12.1)
[2018-03-31 08:17] LABS: Activated Partial Thrombo Time 27.7 Seconds (26.0-36.0)
[2018-03-31] MEDS ORDERED: Albuterol 2.5 MG/3 ML NEBULIZER IH ONE (08:22)
--- NOTE | 2018-03-31 08:22 | Emergency Department Note ---
Disposition Clinical Impression: Acute exacerbation of chronic obstructive airways disease, Respiratory distress , Hypoxia Disposition: Admitted As Inpatient Condition: Fair Referrals: Maria Victoria Garcia MD [Partnered Physician] - Forms: ED Satisfaction Letter Time of Disposition: 10:10 General Adult HPI - General Chief complaint: ED Shortness of Breath/Dyspnea Stated complaint: BEENA Time Seen by Provider: 03/31/18 07:49 Source: patient, EMS Mode of arrival: EMS Limitations: no limitations - History of Present Illness Pain Scale: 0 - Related Data Home Medications Medication Instructions Recorded Confirmed Albuterol Sulfate [Albuterol 2 puff IH QID PRN 05/18/16 12/06/17 Inhaler] Budesonide/Formoterol 160/4.5 2 puff IH BIDR 05/18/16 12/06/17 [Symbicort 160/4.5] Ipratropium/Albuterol Neb [Duoneb] 3 ml IH QID 05/18/16 12/06/17 Oxygen 2 l NS AD 05/18/16 12/06/17 Roflumilast [Daliresp] 500 mcg PO DAILY 05/18/16 12/06/17 Tiotropium [Spiriva] 18 mcg IH 0700 05/18/16 12/06/17 predniSONE [PredniSONE] 5 mg PO BID 05/18/16 12/06/17 Acetylcysteine 600 mg PO BID 12/06/17 12/06/17 [N-Uguekp-g-Cysteine] Acyclovir [Zovirax] 200 mg PO BID 12/06/17 12/06/17 Allergies Allergy/AdvReac Type Severity Reaction Status Date / Time No Known Allergies Allergy Verified 01/02/18 10:21 Past Medical History - Past Medical History Medical history: Reports: COPD, other Surgical history: 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 Psychiatric history: Reports: no psych history - Social History Smoking Status: Former smoker Smokeless Tobacco Status: No Alcohol use: Reports: occasionally Drug use: Reports: none Physical Exam - General Limitations: no limitations General appearance: alert, in no apparent distress Course Vital Signs Temperature 98.4 F 03/31/18 07:49 Pulse Rate 103 03/31/18 07:49 Respiratory Rate 24 03/31/18 07:49 Blood Pressure 158/86 03/31/18 07:49 O2 Sat by Pulse Oximetry 94 03/31/18 07:49 Temperature 98.4 F 03/31/18 07:49 Pulse Rate 106 03/31/18 09:05 Respiratory Rate 12 03/31/18 09:33 Blood Pressure 134/75 03/31/18 09:33 O2 Sat by Pulse Oximetry 96 03/31/18 09:33 Oxygen Delivery Oxygen Delivery Oximizer Medical Decision Making - Lab Data Result diagrams: 03/31/18 07:58 03/31/18 07:58 Lab Results 03/31/18 03/31/18 03/31/18 Range/Units 07:58 07:58 07:58 WBC 16.1 H (4.3-11.1) K/mcL RBC 3.75 L (4.19-5.50) M/mcL Hgb 12.6 L (12.9-16.9) g/dL Hct 38.0 (37.5-50.1) % MCV 101.3 H (83.0-100.0) fL MCH 33.6 H (28.0-33.3) pg MCHC 33.2 (31.6-35.5) g/dL RDW 14.3 (11.5-14.5) % Plt Count 338 (140-400) K/mcL MPV 9.0 L (9.4-12.4) fL Immature Gran % 0.4 (0-4) % Seg Neutrophils % 74.4 % Lymphocytes % 8.2 % Monocytes % 13.4 % Eosinophils % 3.1 % Basophils % 0.5 % Neutrophils # 12.0 H (1.6-8.9) K/mcL Lymphocytes # 1.3 (0.6-4.6) K/mcL Monocytes # 2.2 H (0.0-1.3) K/mcL Eosinophils # 0.5 (0.0-0.6) K/mcL Basophils # 0.1 (0.0-0.2) K/mcL PT (9.4-12.1) Seconds INR APTT (26.0-36.0) Seconds D-Dimer (0-500) ng/mLFEU Sodium 135 L (136-145) mEq/L Potassium 4.0 (3.5-5.1) mEq/L Chloride 97 L (98-107) mEq/L Carbon Dioxide 35 H (23-29) mEq/L BUN 15 (8-23) mg/dL Creatinine 0.78 (0.70-1.30) mg/dL Est GFR ( Amer) > 60 (> 60) Est GFR (Non-Af Amer) > 60 (> 60) BUN/Creatinine Ratio 19 (6-26) Glucose 101 (70-105) mg/dL Calculated Osmolality 281 (280-300) Lactic Acid 0.5 (0.5-2.2) mmol/L Calcium 9.7 (8.6-10.3) mg/dL Troponin I < 0.03 (< 0.04) ng/mL B-Natriuretic Peptide (Less than 100) pg/mL 03/31/18 03/31/18 Range/Units 07:58 07:58 WBC (4.3-11.1) K/mcL RBC (4.19-5.50) M/mcL Hgb (12.9-16.9) g/dL Hct (37.5-50.1) % MCV (83.0-100.0) fL MCH (28.0-33.3) pg MCHC (31.6-35.5) g/dL RDW (11.5-14.5) % Plt Count (140-400) K/mcL MPV (9.4-12.4) fL Immature Gran % (0-4) % Seg Neutrophils % % Lymphocytes % % Monocytes % % Eosinophils % % Basophils % % Neutrophils # (1.6-8.9) K/mcL Lymphocytes # (0.6-4.6) K/mcL Monocytes # (0.0-1.3) K/mcL Eosinophils # (0.0-0.6) K/mcL Basophils # (0.0-0.2) K/mcL PT 9.5 (9.4-12.1) Seconds INR 0.8 APTT 27.7 (26.0-36.0) Seconds D-Dimer 249 (0-500) ng/mLFEU Sodium (136-145) mEq/L Potassium (3.5-5.1) mEq/L Chloride (98-107) mEq/L Carbon Dioxide (23-29) mEq/L BUN (8-23) mg/dL Creatinine (0.70-1.30) mg/dL Est GFR ( Amer) (> 60) Est GFR (Non-Af Amer) (> 60) BUN/Creatinine Ratio (6-26) Glucose (70-105) mg/dL Calculated Osmolality (280-300) Lactic Acid (0.5-2.2) mmol/L Calcium (8.6-10.3) mg/dL Troponin I (< 0.04) ng/mL B-Natriuretic Peptide 19 (Less than 100) pg/mL Attestation Statement - Attestation Attestation: I, Trenton Sykes DO, examined this patient [id number] and my medical decision-making was reviewed with Dr. Jeanie Orourke, Resident Physician. I agree with the documented findings, disposition and treatment plan as described except to the extent set forth below. Please see my progress notes for details. 62-year-old male seen and examined some arrival. Patient presented by EMS with complaint of shortness of breath. He said this happened multiple times in the past has a COPD exacerbation. Initial pulse ox on arrival to the home was 83% on his home 3 L of oxygen room. For the last 2 weeks the patient has required a progression of his oxygen for symptomatic relief and control. He has had intermittent productive sputum and some twinges of chest discomfort. Denies any cardiac disease history. Currently denying chest pain fevers chills nausea vomiting or diarrhea. No headache or vision change. Patient was provided with 1 breathing treatment and transvenous pulse ox is better on a nonrebreather. Arrival here the patient does have significantly diminished breath sounds bilaterally. He does appear to be in some moderate respiratory distress. Patient will be given aspirin breathing treatments as well as steroids here along with chest x-ray EKG CBC chemistry troponin and BNP. Disposition will most likely be admission once the workup and treatment course have been completed. Patient will require continuation of symptomatic control and aid in his management of his COPD. Patient is typically on 2 L of oxygen at home 24 hours a day. Patient denies any smoking history but does have significant COPD history. Remarkable outside of tachycardia after the breathing treatments. Pulse ox is diminished we will continue to monitor closely. Patient has required BiPAP in the past but has never needed intubation for his breathing related issues. 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 His heart is regular. He has no signs of pitting edema. He is alert he is oriented. See detailed documentation of the physical exam, medical intervention, medical decision-making and disposition the resident physician's note. No critical care provider the patient's treatment course at this time. 1000 Chest x-ray does not show any acute signs of consolidation or concern for pneumonia at this point. Patient's pulse ox is fluctuated throughout the ED treatment course. BiPAP was applied secondary to a pulse ox of 79% wall the patient sleeping. The aeration and movement of air in the lungs has continued to get better after a second continued breathing treatment with albuterol. Steroids and first dose of Levaquin were given here in the emergency room. Patient's d-dimer was negative at this time and clinical suspicion for pulmonary emboli is low on the negative d-dimer negates CT imaging here in the emergency room. Patient will be admitted for continuation of care what appears to be an acute COPD exacerbation with hypoxia. Hospitalist was contacted no other recommendations or concerns were noted. Admission process will be completed this time. Patient will be monitored in emergency room until admission is completed
[2018-03-31 08:30] LABS: Troponin I < 0.03 ng/mL (< 0.04)
[2018-03-31 08:36] LABS: BUN/Creatinine Ratio 19 (6-26); Blood Urea Nitrogen 15 mg/dL (8-23); Calcium 9.7 mg/dL (8.6-10.3); Carbon Dioxide 35 mEq/L (23-29); Chloride 97 mEq/L (98-107); Glucose 101 mg/dL (70-105); Osmolality,Calculated 281 (280-300); Sodium 135 mEq/L (136-145); eGFR For Non-African Americans > 60 (> 60)
[2018-03-31] MEDS ORDERED: Naloxone 0.4 MG/ML INJ IVP PRN (10:05)
[2018-03-31] MEDS ORDERED: NON-FORMULARY MEDICATION 1 EACH EACH (Oxygen [Oxygen] 2 L) NS SCH (10:15)
--- NOTE | 2018-03-31 10:45 | Internal Med History&Physical ---
Date of Encounter: 03/31/18 Time of Encounter: 10:45 Internal Medicine - H&P: HPI Chief complaint: Shortness of breath, dropping oxygen levels History of present illness: Mr. Arana is a 62 year old male with pmh of COPD on home oxygen, chronic respiratory failure presenting with complaints of shortness of breath that has been going on for a couple of days and got acute worse today with a drop in his oxygen levels to 83%. Patient notes that his oxygen levels have been lower than normal for a week or so, and has had to bump up his oxygen from 2L to 3L to keep his sats above 93%. He has also been getting progressively short of breath with occasional coughing, but denies any wheezing. He woke up this morning feeling short of breath and bumped his oxygen up to 4L but he says his sats were in the low 80s and that's why he came to the ER. In the ER, he was noted to be desaturating down to 78%, he was given 3 doses of duonebs and placed on BIPAP and is being admitted for further management Past Med Surg Social Fam HX - Past Medical History Medical history: COPD, other Psychiatric history: no psych history - Past Surgical History Surgical History: cataract Additional surgical history: cataract removal, spleenectomy. - Social History Smoking Status: Former smoker Smokeless Tobacco Status: No Alcohol use: occasionally Drug use: none - Family History Mother Living Status: Hx Family Cardiac Disorders: Yes (cardiomyopathy) Father Hx Family Cardiac Disorders: Yes (PA) Hx Family Neurologic Disorders: Yes (Stroke) Internal Medicine - H&P: Meds Albuterol Sulfate [Albuterol Inhaler] 2 puff IH QID PRN 05/18/16 [History] Budesonide/Formoterol 160/4.5 [Symbicort 160/4.5] 2 puff IH BIDR 05/18/16 [ History] Ipratropium/Albuterol Neb [Duoneb] 3 ml IH QID 05/18/16 [History] Oxygen 2 l NS AD 05/18/16 [History] Roflumilast [Daliresp] 500 mcg PO DAILY 05/18/16 [History] Tiotropium [Spiriva] 18 mcg IH 0700 05/18/16 [History] predniSONE [PredniSONE] 5 mg PO BID 05/18/16 [History] Acetylcysteine [G-Jftjyl-s-Cysteine] 600 mg PO BID 12/06/17 [History] Acyclovir [Zovirax] 200 mg PO BID 12/06/17 [History] 3 Allergy/AdvReac Type Severity Reaction Status Date / Time No Known Allergies Allergy Verified 01/02/18 10:21 All Systems PM: A 10-system review of systems was performed and is negative for pertinent findings except as documented above in the HPI. - Constitutional Constitutional: as per HPI, no chills, no fever(s), no night sweats - EENT Eyes: no change in vision, no discharge, no pain, no photophobia Ears: no ear discharge, no ear pain, no tinnitus Nose, mouth and throat: no dysphagia, no nasal discharge, no neck pain, no sore throat - Cardiovascular Cardiovascular ROS IM: dyspnea, no chest pain, no diaphoresis, no lightheadedness, no palpitations, no syncope - Respiratory Respiratory: cough, dyspnea on exertion, no dyspnea, no wheezing, no excessive phlegm production - Gastrointestinal Gastrointestinal: no abdominal pain, no diarrhea, no hematemesis, no hematochezia, no melena, no nausea, no vomiting - Musculoskeletal Musculoskeletal ROS IM: no numbness, no tingling - Integumentary Integumentary IM: no rash, no unusual bruising - Neurological Neurological ROS: no confusion, no convulsions, no focal weakness, no numbness, no tingling, no tremor(s) - Hematologic/Lymphatic Hematologic/Lymphatic: no easy bruising - Constitutional Vitals: Temp Pulse Resp BP Pulse Ox 98.4 F 115 22 142/82 92 03/31/18 07:49 03/31/18 10:31 03/31/18 10:35 03/31/18 10:35 03/31/18 10:31 Exam: NAD. On BIPAP - Head Head exam: Present: atraumatic, normocephalic - Eye Eye exam: Present: PERRL, conjuntiva pink, sclera anicteric Pupils: Present: PERRL - Neck Neck exam general surgery: Present: supple, trachea midline. Absent: lymphadenopathy - Respiratory Respiratory exam: Present: decreased breath sounds, respiratory distress. Absent: accessory muscle use, rales, rhonchi, wheezes - Cardiovascular Cardiovascular exam: Present: RRR, +S1, +S2. Absent: diastolic murmur, gallop, rubs, systolic murmur - GI/Abdominal GI/Abdominal exam: Present: normal bowel sounds, soft, no peritoneal signs. Absent: distended, tenderness - Extremities Exam Extremities exam: Present: warm, radial pulses palpable and symmetrical. Absent : calf tenderness, cyanotic, pedal edema - Neurological Exam Neurological exam: Present: CN II-XII intact, oriented X3, no focal deficits. Absent: pronater drift, facial droop, speech deficit - Skin Skin exam: Present: dry, intact Internal Med - H&P Results - Labs CBC & Chem 7: 03/31/18 07:58 03/31/18 07:58 - Assessment and plan (1) Acute and chronic respiratory failure with hypoxia Current Visit: Yes Status: Acute Assessment and plan: Pt has COPD eith acute hypoxic respiratory failure. Oxygen sats on arrival on oxygen reportedly 78% Start on BIPAP, nebs, steroids and antibiotics and supplemental oxygen as needed. Obtain ABG to evaluate for hypercapnia (2) Acute exacerbation of chronic obstructive airways disease Current Visit: Yes Status: Acute Assessment and plan: See #1 Nebs, steroids , antibiotics and BIPAP (3) Pulmonary nodule Current Visit: No Status: Acute Assessment and plan: Stable. Outpatient follow up (4) Leukocytosis Current Visit: Yes Status: Acute Assessment and plan: WBC noted to be 16. Pt is afebril, cxr is negative. Will be on levaquin for COPD exacerbations Obtain blood cultures, consider repeat xray in am to r/o developing pneumonia Qualifiers: Qualified Code(s): D72.829 - Elevated white blood cell count, unspecified (5) DVT prophylaxis Current Visit: No Status: Acute Assessment and plan: heparin sc - Time Spent With Patient Total time spent is greater than 50% in coordination of care (as documented) at patient's floor/unit and/or counseling patient:
[2018-03-31] MEDS: Ipratropium/Albuterol Neb 3 ML IH SCH ×3 (11:02→23:01)
[2018-03-31 11:19] LABS: ABG Base Excess 8 mEq/L (-2 to 3); ABG HCO3 34 mEq/L (21-27); ABG Oxygen Saturation 95 % (95-98); ABG PCO2 48 mmHg (35-45); ABG PH 7.46 pH Units (7.32-7.45); ABG PO2 73 mmHg (85-104); ABG TCO2 35 mEq/L (20-26); Blood Gas PEEP 6 cm H2O; Blood Gas Pressure Support 12 cm H2O
[2018-03-31] MEDS: Acyclovir 200 MG CAPSULE PO SCH ×2 (12:33→20:53)
[2018-03-31] MEDS: methylPREDNISolone 125 MG/2 ML VIAL IVP SCH (16:36)
[2018-03-31] MEDS ORDERED: Acyclovir 200 MG CAPSULE PO SCH (21:00)
[2018-03-31] MEDS: Budesonide/Formoterol 160/4.5 1 PUFF INH IH SCH (23:00)
[2018-04-01] MEDS: methylPREDNISolone 125 MG/2 ML VIAL IVP SCH ×3 (00:11→17:52)
[2018-04-01] MEDS: Ipratropium/Albuterol Neb 3 ML IH SCH ×4 (04:15→22:13)
[2018-04-01 04:25] LABS: Basophils % 0.1 %; Hematocrit 35.9 % (37.5-50.1); Hemoglobin 12.2 g/dL (12.9-16.9); Immature Granulocytes % 0.5 % (0-4); Lymphocytes # 0.3 K/mcL (0.6-4.6); Lymphocytes % 1.5 %; Mean Corpuscular Hemoglobin 33.9 pg (28.0-33.3); Mean Corpuscular Volume 99.7 fL (83.0-100.0); Mean Platelet Volume 9.7 fL (9.4-12.4); Monocytes # 0.8 K/mcL (0.0-1.3); Monocytes % 3.7 %; Neutrophils # 20.4 K/mcL (1.6-8.9); Platelet Count 337 K/mcL (140-400); Red Cell Distribution Width 14.2 % (11.5-14.5); Segmented Neutrophils % 94.2 %
[2018-04-01 04:41] LABS: BUN/Creatinine Ratio 25 (6-26); Blood Urea Nitrogen 16 mg/dL (8-23); Calcium 9.8 mg/dL (8.6-10.3); Carbon Dioxide 31 mEq/L (23-29); Chloride 99 mEq/L (98-107); Glucose 139 mg/dL (70-105); Magnesium 2.3 mg/dL (1.6-2.6); Osmolality,Calculated 281 (280-300); Phosphorous 2.9 mg/dL (2.7-4.5); Potassium 4.3 mEq/L (3.5-5.1); Sodium 134 mEq/L (136-145); eGFR For Non-African Americans > 60 (> 60)
[2018-04-01] MEDS: *HR* Heparin 5,000 UNIT/ML VIAL SQ SCH ×2 (05:53→17:51)
[2018-04-01] MEDS ORDERED: Roflumilast [Daliresp] 500 MCG PO SCH (09:00)
[2018-04-01] MEDS: Levofloxacin 750 MG/150 ML 750 MG/150 ML BAG IVPB SCH (09:41)
[2018-04-01] MEDS: Acyclovir 200 MG CAPSULE PO SCH ×2 (09:42→21:08)
--- NOTE | 2018-04-01 09:59 | Internal Med Progress Note ---
Hospitalist Progress Note - Encounter Date of Encounter: 04/01/18 Time of Encounter: 08:00 - Subjective Interval History: Patient said shortness of breath has improved after treatment. No fever. Mild cough without sputum. Still on 4 L nasal cannula oxygen with SPO2 91%. - Exam Vitals: Temp Pulse Resp BP Pulse Ox 97.6 F 103 16 143/84 95 04/01/18 06:54 04/01/18 06:54 04/01/18 06:54 04/01/18 06:54 04/01/18 06:54 Exam: In NAD. HEENT: AC/NT, PERRL Neck: Supple, no JVD Lungs: Coarse breath sound B/L. scattered wheezes b/l Heart: S1S2, RRR Abd: NT, soft Ext: No pedal edema Neuro: AAO x 3, no focal deficit. - Assessment and Plan (1) DVT prophylaxis Current Visit: No Status: Acute Assessment and Plan: heparin sc (2) Pulmonary nodule Current Visit: No Status: Acute Assessment and Plan: Stable. Outpatient follow up per protocol. (3) Acute exacerbation of chronic obstructive airways disease Current Visit: Yes Status: Acute Assessment and Plan: Improved after treatment. Cont Nebs, steroids , antibiotics and BIPAP as needed. - BNP 19, SOB less likely cardiac etiology. (4) Acute and chronic respiratory failure with hypoxia Current Visit: Yes Status: Acute Assessment and Plan: Due to COPD exacerbation. Cont current treatment. (5) Leukocytosis Current Visit: Yes Status: Acute Assessment and Plan: WBC noted to be 16. Pt is afebril, cxr is negative. Will be on levaquin for COPD exacerbations - Symptoms improved after treatment. - Further leukocytosis probably due to steroid. DVT Prophylaxis: heparin SC - Time Spent with Patient Total time spent is greater than 50% in coordination of care (as documented) at patient's floor/unit and/or counseling patient: 30 mins 25 - 35 minutes Plan of Care Discussed with: patient Internal Medicine: Result - Labs CBC & Chem 7: 04/01/18 03:55 04/01/18 03:55 Labs: Short CBC 04/01/18 Range/Units 03:55 WBC 21.6 H (4.3-11.1) K/mcL Hgb 12.2 L (12.9-16.9) g/dL Hct 35.9 L (37.5-50.1) % Plt Count 337 (140-400) K/mcL Neutrophils # 20.4 H (1.6-8.9) K/mcL BMP 04/01/18 03:55 Sodium 134 L Potassium 4.3 Chloride 99 Carbon Dioxide 31 H BUN 16 Creatinine 0.65 L Glucose 139 H Calcium 9.8 - ABG Interpretation ABG results: ABG ABG pH 7.46 pH Units (7.32-7.45) H 03/31/18 11:13 ABG pCO2 48 mmHg (35-45) H 03/31/18 11:13 ABG pO2 73 mmHg (85-104) L 03/31/18 11:13 ABG O2 Saturation 95 % (95-98) 03/31/18 11:13 PT/INR, D-dimer PT 9.5 Seconds (9.4-12.1) 03/31/18 07:58 D-Dimer 249 ng/mLFEU (0-500) 03/31/18 07:58 Consult Discharge Plan - Plan Referrals: Maria Victoria Garcia MD [Primary Care Provider] - (5) Leukocytosis Qualifiers: Qualified Code(s): D72.829 - Elevated white blood cell count, unspecified
[2018-04-01] MEDS: Budesonide/Formoterol 160/4.5 1 PUFF INH IH SCH ×2 (11:31→22:13)
[2018-04-01] MEDS: Lactobacillus 1 EACH CAP.SPRINK PO SCH (14:11)
[2018-04-01] MEDS: Tiotropium 18 MCG inhalation IH SCH (15:09)
--- NOTE | 2018-04-01 17:10 | Electrocardiograph Report ---
[facility] Test Date: 2018-03-31 Pat Name: Ulysses Arana Department: EXAM3 Room: 2NE19 Gender: M Slabber: : 1955 Requested By: Trenton Sykes Order Number: [id number] Reading MD: Gil López Measurements Intervals [place] Rate: 98 P: 67 DE: 167 QRS: 30 QRSD: 96 T: 68 QT: 354 QTc: 452 Interpretive Statements Sinus rhythm Electronically Signed On 04-01-2018 17:08:04 EDT by Gil López
[2018-04-01] MEDS: *HR* Acetylcysteine 20% 600 MG/3 ML ORAL SYRINGE PO SCH (21:09)
[2018-04-02] MEDS: methylPREDNISolone 125 MG/2 ML VIAL IVP SCH ×2 (01:02→08:55)
[2018-04-02] MEDS: *HR* Heparin 5,000 UNIT/ML VIAL SQ SCH ×2 (01:02→08:54)
[2018-04-02 03:50] LABS: Basophils % 0.1 %; Hematocrit 34.3 % (37.5-50.1); Hemoglobin 11.4 g/dL (12.9-16.9); Immature Granulocytes % 0.4 % (0-4); Lymphocytes # 0.4 K/mcL (0.6-4.6); Lymphocytes % 2.6 %; Mean Corpuscular HGB Conc 33.2 g/dL (31.6-35.5); Mean Corpuscular Hemoglobin 32.9 pg (28.0-33.3); Mean Corpuscular Volume 99.1 fL (83.0-100.0); Mean Platelet Volume 10.3 fL (9.4-12.4); Monocytes # 0.5 K/mcL (0.0-1.3); Monocytes % 3.6 %; Neutrophils # 13.9 K/mcL (1.6-8.9); Platelet Count 357 K/mcL (140-400); Red Blood Count 3.46 M/mcL (4.19-5.50); Red Cell Distribution Width 14.5 % (11.5-14.5); Segmented Neutrophils % 93.3 %
[2018-04-02 04:13] LABS: BUN/Creatinine Ratio 26 (6-26); Blood Urea Nitrogen 18 mg/dL (8-23); Calcium 9.5 mg/dL (8.6-10.3); Carbon Dioxide 26 mEq/L (23-29); Chloride 99 mEq/L (98-107); Glucose 225 mg/dL (70-105); Osmolality,Calculated 289 (280-300); Potassium 3.9 mEq/L (3.5-5.1); Sodium 135 mEq/L (136-145); eGFR For Non-African Americans > 60 (> 60)
[2018-04-02] MEDS: Ipratropium/Albuterol Neb 3 ML IH SCH ×2 (04:25→10:42)
[2018-04-02 07:37] VITALS: BP 144/84
[2018-04-02] MEDS: Levofloxacin 750 MG/150 ML 750 MG/150 ML BAG IVPB SCH (08:53)
[2018-04-02] MEDS: Lactobacillus 1 EACH CAP.SPRINK PO SCH (08:54)
[2018-04-02] MEDS: Acyclovir 200 MG CAPSULE PO SCH (08:54)
[2018-04-02] MEDS: *HR* Acetylcysteine 20% 600 MG/3 ML ORAL SYRINGE PO SCH (08:56)
--- NOTE | 2018-04-02 09:38 | Discharge Summary ---
- NOTES TO OUTPATIENT PROVIDER Notes to Outpatient Provider: On steroid taper down dose Date of Encounter: 04/02/18 Time of Encounter: 08:30 - Discharge Diagnosis (1) DVT prophylaxis Priority: Secondary Status: Acute (2) Pulmonary nodule Priority: Secondary Status: Acute (3) Acute exacerbation of chronic obstructive airways disease Priority: Primary Status: Acute (4) Acute and chronic respiratory failure with hypoxia Priority: Primary Status: Acute (5) Leukocytosis Priority: Secondary Status: Acute Qualifiers: Qualified Code(s): D72.829 - Elevated white blood cell count, unspecified Hospital course: Mr. Arana is a 62 year old male presented to ER for increased cough and shortness of breath. Past medical history is significant for COPD on home oxygen. Patient was treated with antibiotic, steroid, nebulizer. After treatment, his shortness of breasts is getting down to his baseline. No wheezing on auscultation. Will switch to by mouth antibiotic and steroid. Steroid will gradually taper down to his baseline level, i.e. prednisone 5 mg by mouth twice a day. Patient will follow-up with PCP as outpatient. I saw and examined patient today. Patient is awake alert, oriented 3, in no acute respiratory distress. On exam, no wheezing. Vitals stable. Oxygen saturation 93% in 3 L nasal cannula oxygen, which is his baseline. Patient feels fine to discharge home. Will continue follow-up as outpatient with PCP. Patient had mild hyperglycemia on steroid, expected improvement as we decrease the dose of steroid, instruct the patient take low sugar diet during steroid use. Discharge discussed with: patient - Time Spent with Patient Total time spent providing and/or coordinating discharge services: 25 minutes Less than 30 minutes - Discharge Medications Prescriptions: Lactobacillus [Culturelle] 2 each PO DAILY 15 Days #30 cap.sprink Levofloxacin [Levaquin] 750 mg PO DAILY 5 Days #5 tablet PredniSONE [Deltasone] See Taper PO DAILY 10 Days #15 tablet Home Medications: Albuterol Sulfate [Albuterol Inhaler] 2 puff IH QID PRN 05/18/16 [History] Budesonide/Formoterol 160/4.5 [Symbicort 160/4.5] 2 puff IH BIDR 05/18/16 [ History] Ipratropium/Albuterol Neb [Duoneb] 3 ml IH QID 05/18/16 [History] Oxygen 2 l NS AD 05/18/16 [History] Roflumilast [Daliresp] 500 mcg PO DAILY 05/18/16 [History] Tiotropium [Spiriva] 18 mcg IH 0700 05/18/16 [History] predniSONE [PredniSONE] 5 mg PO BID 05/18/16 [History] Acetylcysteine [C-Kmjmxi-t-Cysteine] 600 mg PO BID 12/06/17 [History] Acyclovir [Zovirax] 200 mg PO BID 12/06/17 [History] Lactobacillus [Culturelle] 2 each PO DAILY 15 Days #30 cap.sprink 04/02/18 [Rx] Levofloxacin [Levaquin] 750 mg PO DAILY 5 Days #5 tablet 04/02/18 [Rx] PredniSONE [Deltasone] See Taper PO DAILY 10 Days #15 tablet 04/02/18 [Rx] Allergies/Adverse Reactions: 3 Allergy/AdvReac Type Severity Reaction Status Date / Time No Known Allergies Allergy Verified 01/02/18 10:21 Date of admission: 03/31/18 11:39 Primary care physician: Maria Victoria Garcia MD Discharging clinician: Ismael Parkinson - Constitutional Vitals: Temp Pulse Resp BP Pulse Ox 97.7 F 80 16 144/84 96 04/02/18 07:35 04/02/18 07:35 04/02/18 07:35 04/02/18 07:35 04/02/18 07:35 General appearance: Present: A&O X 3, no acute distress, answers questions appropriately Exam: In NAD - Head Head exam: Present: atraumatic, normocephalic - Eye Eye exam: Present: PERRL, conjuntiva pink, sclera anicteric Pupils: Present: PERRL - Neck Neck exam general surgery: Present: supple, trachea midline. Absent: lymphadenopathy - Respiratory Respiratory exam: Present: CTAB. Absent: accessory muscle use, rales, rhonchi, wheezes - Cardiovascular Cardiovascular exam: Present: RRR, +S1, +S2. Absent: diastolic murmur, gallop, rubs, systolic murmur - GI/Abdominal GI/Abdominal exam: Present: normal bowel sounds, soft, no peritoneal signs. Absent: distended, tenderness - Extremities Exam Extremities exam: Present: warm, radial pulses palpable and symmetrical. Absent : calf tenderness, cyanotic, pedal edema - Neurological Exam Neurological exam: Present: CN II-XII intact, oriented X3, no focal deficits. Absent: pronater drift, facial droop, speech deficit - Skin Skin exam: Present: dry, intact - Patient Status Disposition: Home, Self-Care Condition: Fair Functional capacity at discharge: independent ambulation Overall status at discharge: patient is back to baseline - Discharge Instructions Follow Up With: Maria Victoria Garcia MD [Primary Care Provider] - - Diet and Activity Activity: increase activity as tolerated Diet: diabetic diet, low fat, low cholesterol, low salt diet
[2018-04-02] MEDS: Tiotropium 18 MCG inhalation IH SCH (10:40)
[2018-04-02] MEDS: Budesonide/Formoterol 160/4.5 1 PUFF INH IH SCH (10:41)
== END 2018-04-02 12:50 | disposition home or self-care (01) | DRG 189 ==
LOC: EMEROOARM 07:46 → 2NENU 07:46
PROVIDERS: ADMIT Student in an Organized Health Care Education/Training Program; ATTEND Student in an Organized Health Care Education/Training Program

== ENCOUNTER 2018-07-01 05:24 | Observation (INO) ==
--- NOTE | 2018-07-01 05:34 | Emergency Department Note ---
Disposition Clinical Impression: Acute exacerbation of chronic obstructive pulmonary disease (COPD) Acute and chronic respiratory failure ([id number]) Qualifiers: Respiratory failure complication: unspecified whether with hypoxia or hypercapnia Qualified Code(s): J96.20 - Acute and chronic respiratory failure, unspecified whether with hypoxia or hypercapnia Disposition: Admitted As Inpatient Condition: Fair Time of Disposition: 07:04 SOB HPI - General Stated Complaint: Nausea, shortness of breath Time Seen by Provider: 07/01/18 05:33 Nursing Notes Reviewed: Yes Vital Signs Reviewed: Yes - History of Present Illness 62-year-old male presents from home via EMS for evaluation of shortness of breath and, "feeling sick." Symptoms began at 1 AM; 4.5 hours prior to arrival. He awoke with shortness of breath and nausea. Associated with generalized weakness. Not improved with his supplemental oxygen. Worsened with light exertion. PMH: COPD with baseline 3 L oxygen nasal cannula continuously. ROS: Positive: As above Negative: Fever, cough, chills, vomiting, chest pains, palpitations, diarrhea, constipation, focal numbness or tingling or weakness. - Related Data Home Medications Medication Instructions Recorded Confirmed Albuterol Sulfate [Albuterol 2 puff IH QID PRN 05/18/16 03/31/18 Inhaler] Budesonide/Formoterol 160/4.5 2 puff IH BIDR 05/18/16 03/31/18 [Symbicort 160/4.5] Ipratropium/Albuterol Neb [Duoneb] 3 ml IH QID 05/18/16 03/31/18 Oxygen 2 l NS AD 05/18/16 03/31/18 Roflumilast [Daliresp] 500 mcg PO DAILY 05/18/16 03/31/18 Tiotropium [Spiriva] 18 mcg IH 0700 05/18/16 03/31/18 predniSONE [PredniSONE] 5 mg PO BID 05/18/16 03/31/18 Acetylcysteine 600 mg PO BID 12/06/17 03/31/18 [W-Haghve-l-Cysteine] Acyclovir [Zovirax] 200 mg PO BID 12/06/17 03/31/18 Previous Rx's Medication Instructions Recorded Lactobacillus [Culturelle] 2 each PO DAILY 15 Days #30 04/02/18 cap.sprink Levofloxacin [Levaquin] 750 mg PO DAILY 5 Days #5 tablet 04/02/18 PredniSONE [Deltasone] See Taper PO DAILY 10 Days #15 04/02/18 tablet Allergies Allergy/AdvReac Type Severity Reaction Status Date / Time No Known Allergies Allergy Verified 01/02/18 10:21 All systems ED: reviewed and negative except as stated. Review of Systems: As Per HPI Past Medical History - Past Medical History Medical history: Reports: COPD, other Surgical history: 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, splenectomy Psychiatric history: Reports: no psych history - Social History Smoking Status: Former smoker Smokeless Tobacco Status: No Alcohol use: Reports: occasionally Drug use: Reports: none Physical Exam Vital Signs Reviewed General: Patient is alert, oriented, and in mild distress. Though his pulse ox is appropriate at bedside, patient states that he needs oxygen immediately and that he cannot breathe. Head: atraumatic, normocephalic Eye: normal appearance, no scleral icterus, no conjunctival injection ENT: mucous membranes moist, normal external ear exam Neck: normal inspection, trachea midline, full ROM Chest: normal inspection, symmetric chest rise Respiratory: Poor respiratory effort. Bilateral breath sounds are diminished with scattered coarse crackles. Cardiovascular: Regular rate and rhythm. No clicks, rubs, gallops, or murmors. Normal heart sounds. Abdomen: Bowel sounds present normoactive. Abdomen is soft, nondistended, and nontender. No guarding or rebound. Musculoskeletal: Spontaneously moving all extremities. Skin: warm, dry, intact. Neuro: GCS 15. No focal neurologic deficits observed. No gait ataxia. Psych: Patient's affect is appropriate for situation. Course Course Narrative: EKG dated 07/01/2018 at 05:32 interpreted as sinus tachycardia with a rate of 116. NC 142, QRS 92, QTC 444. PVCs present. Nonspecific ST-T changes. Compared to previous EKG dated 03/31/2018 showing no acute ischemic changes or comparison. Patient is insistent that he cannot breathe however, he is oxygenating in the mid 90s on his baseline 3 L. Of concern, is his overall poor pulmonary exam and his increased work of breathing using accessory muscles. He is tachycardic and tachypneic, afebrile. Patient has mild leukocytosis. Serum chemistries unremarkable. Patient has elevation in lactic acid 2.9. Suspect this is from his increased work of breathing. Gentle fluid hydration provided. Chest x-ray is unremarkable. EKG shows no acute ischemic changes. Initial troponin within normal limits. Clinically suspect patient is an acute exacerbation of COPD. After an initial triple dose of DuoNeb's, his oxygen saturation dipped into the high 80s. Suspect this is VQ mismatch as his airways are opening up. Will provide Solu- Medrol and albuterol nebs. I discussed the above with the admitting hospitalist, Dr. Reyez. He accepts the patient for AE COPD. BMP was hemolized and is being re-drawn. Chest X-Ray 07/01/18 05:36 IMPRESSION: No acute disease. D/ / Ricky Mathis MD / Ricky Mathis MD Interpreting Provider: Ricky Mathis MD Vital Signs Temperature 99.1 F 07/01/18 05:31 Pulse Rate 117 07/01/18 05:31 Respiratory Rate 24 07/01/18 05:31 Blood Pressure 137/83 07/01/18 05:31 O2 Sat by Pulse Oximetry 94 07/01/18 05:31 Temperature 99.1 F 07/01/18 05:31 Pulse Rate 117 07/01/18 05:31 Respiratory Rate 20 07/01/18 06:09 Blood Pressure 137/83 07/01/18 05:31 O2 Sat by Pulse Oximetry 94 07/01/18 06:09 Oxygen Delivery Oxygen Delivery Nasal Cannula Shortness of Breath/Dyspnea - Lab Data Result diagrams: 07/01/18 05:50 07/01/18 05:50 Lab Results 07/01/18 07/01/18 Range/Units 05:50 05:50 WBC 12.3 H (4.3-11.1) K/mcL RBC 4.22 (4.19-5.50) M/mcL Hgb 13.9 (12.9-16.9) g/dL Hct 42.2 (37.5-50.1) % MCV 100.0 (83.0-100.0) fL MCH 32.9 (28.0-33.3) pg MCHC 32.9 (31.6-35.5) g/dL RDW 14.6 H (11.5-14.5) % Plt Count 339 (140-400) K/mcL MPV 9.5 (9.4-12.4) fL Immature Gran % 0.4 (0-4) % Seg Neutrophils % 94.1 % Lymphocytes % 2.1 % Monocytes % 2.5 % Eosinophils % 0.7 % Basophils % 0.2 % Neutrophils # 11.6 H (1.6-8.9) K/mcL Lymphocytes # 0.3 L (0.6-4.6) K/mcL Monocytes # 0.3 (0.0-1.3) K/mcL Eosinophils # 0.1 (0.0-0.6) K/mcL Basophils # 0.0 (0.0-0.2) K/mcL Lactic Acid 2.9 H (0.5-2.2) mmol/L
[2018-07-01] MEDS ORDERED: Ipratropium/Albuterol Neb 3 ML IH ONE (05:47)
[2018-07-01 06:06] LABS: Basophils % 0.2 %; Eosinophils # 0.1 K/mcL (0.0-0.6); Eosinophils % 0.7 %; Hematocrit 42.2 % (37.5-50.1); Hemoglobin 13.9 g/dL (12.9-16.9); Immature Granulocytes % 0.4 % (0-4); Lymphocytes # 0.3 K/mcL (0.6-4.6); Lymphocytes % 2.1 %; Mean Corpuscular HGB Conc 32.9 g/dL (31.6-35.5); Mean Corpuscular Hemoglobin 32.9 pg (28.0-33.3); Mean Platelet Volume 9.5 fL (9.4-12.4); Monocytes # 0.3 K/mcL (0.0-1.3); Monocytes % 2.5 %; Neutrophils # 11.6 K/mcL (1.6-8.9); Platelet Count 339 K/mcL (140-400); Red Blood Count 4.22 M/mcL (4.19-5.50); Red Cell Distribution Width 14.6 % (11.5-14.5); Segmented Neutrophils % 94.1 %
--- NOTE | 2018-07-01 06:09 | Emergency Department Note ---
Disposition Clinical Impression: Acute exacerbation of chronic obstructive pulmonary disease (COPD) Acute and chronic respiratory failure ([id number]) Qualifiers: Respiratory failure complication: unspecified whether with hypoxia or hypercapnia Qualified Code(s): J96.20 - Acute and chronic respiratory failure, unspecified whether with hypoxia or hypercapnia Disposition: Admitted As Inpatient Condition: Fair General Adult HPI - General Chief complaint: ED Shortness of Breath/Dyspnea Stated complaint: Nausea, shortness of breath Time Seen by Provider: 07/01/18 05:33 Source: patient Limitations: no limitations Nursing Notes Reviewed: Yes Vital Signs Reviewed: Yes - History of Present Illness Pain Scale: 0 - Related Data Home Medications Medication Instructions Recorded Confirmed Albuterol Sulfate [Albuterol 2 puff IH QID PRN 05/18/16 03/31/18 Inhaler] Budesonide/Formoterol 160/4.5 2 puff IH BIDR 05/18/16 03/31/18 [Symbicort 160/4.5] Ipratropium/Albuterol Neb [Duoneb] 3 ml IH QID 05/18/16 03/31/18 Oxygen 2 l NS AD 05/18/16 03/31/18 Roflumilast [Daliresp] 500 mcg PO DAILY 05/18/16 03/31/18 Tiotropium [Spiriva] 18 mcg IH 0700 05/18/16 03/31/18 predniSONE [PredniSONE] 5 mg PO BID 05/18/16 03/31/18 Acetylcysteine 600 mg PO BID 12/06/17 03/31/18 [O-Svqnco-i-Cysteine] Acyclovir [Zovirax] 200 mg PO BID 12/06/17 03/31/18 Previous Rx's Medication Instructions Recorded Lactobacillus [Culturelle] 2 each PO DAILY 15 Days #30 04/02/18 cap.sprink Levofloxacin [Levaquin] 750 mg PO DAILY 5 Days #5 tablet 04/02/18 PredniSONE [Deltasone] See Taper PO DAILY 10 Days #15 04/02/18 tablet Allergies Allergy/AdvReac Type Severity Reaction Status Date / Time No Known Allergies Allergy Verified 01/02/18 10:21 Past Medical History - Past Medical History Medical history: Reports: COPD, other Surgical history: 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, splenectomy Psychiatric history: Reports: no psych history - Social History Smoking Status: Former smoker Smokeless Tobacco Status: No Alcohol use: Reports: occasionally Drug use: Reports: none Physical Exam - General Limitations: no limitations General appearance: in no apparent distress Course Vital Signs Temperature 99.1 F 07/01/18 05:31 Pulse Rate 117 07/01/18 05:31 Respiratory Rate 24 07/01/18 05:31 Blood Pressure 137/83 07/01/18 05:31 O2 Sat by Pulse Oximetry 94 07/01/18 05:31 Temperature 99.1 F 07/01/18 05:31 Pulse Rate 120 07/01/18 07:00 Respiratory Rate 24 07/01/18 07:00 Blood Pressure 152/82 07/01/18 07:00 O2 Sat by Pulse Oximetry 96 07/01/18 07:00 Oxygen Delivery Oxygen Delivery Nasal Cannula Medical Decision Making - Medical Records Medical records reviewed: Yes I reviewed the patient's medical records. - Lab Data Lab results reviewed: Yes I reviewed the patient's lab results. Result diagrams: 07/01/18 05:50 07/01/18 05:50 Lab Results 07/01/18 07/01/18 07/01/18 Range/Units 05:50 05:50 05:50 WBC 12.3 H (4.3-11.1) K/mcL RBC 4.22 (4.19-5.50) M/mcL Hgb 13.9 (12.9-16.9) g/dL Hct 42.2 (37.5-50.1) % MCV 100.0 (83.0-100.0) fL MCH 32.9 (28.0-33.3) pg MCHC 32.9 (31.6-35.5) g/dL RDW 14.6 H (11.5-14.5) % Plt Count 339 (140-400) K/mcL MPV 9.5 (9.4-12.4) fL Immature Gran % 0.4 (0-4) % Seg Neutrophils % 94.1 % Lymphocytes % 2.1 % Monocytes % 2.5 % Eosinophils % 0.7 % Basophils % 0.2 % Neutrophils # 11.6 H (1.6-8.9) K/mcL Lymphocytes # 0.3 L (0.6-4.6) K/mcL Monocytes # 0.3 (0.0-1.3) K/mcL Eosinophils # 0.1 (0.0-0.6) K/mcL Basophils # 0.0 (0.0-0.2) K/mcL Sodium Cancelled Potassium Cancelled Chloride Cancelled Carbon Dioxide Cancelled BUN Cancelled Creatinine Cancelled Est GFR ( Amer) Cancelled Est GFR (Non-Af Amer) Cancelled BUN/Creatinine Ratio Cancelled Glucose Cancelled Calculated Osmolality Cancelled Lactic Acid 2.9 H (0.5-2.2) mmol/L Calcium Cancelled Troponin I < 0.03 (< 0.04) ng/mL B-Natriuretic Peptide (Less than 100) pg/mL Specimen Rejected 07/01/18 07/01/18 Range/Units 05:50 05:50 WBC (4.3-11.1) K/mcL RBC (4.19-5.50) M/mcL Hgb (12.9-16.9) g/dL Hct (37.5-50.1) % MCV (83.0-100.0) fL MCH (28.0-33.3) pg MCHC (31.6-35.5) g/dL RDW (11.5-14.5) % Plt Count (140-400) K/mcL MPV (9.4-12.4) fL Immature Gran % (0-4) % Seg Neutrophils % % Lymphocytes % % Monocytes % % Eosinophils % % Basophils % % Neutrophils # (1.6-8.9) K/mcL Lymphocytes # (0.6-4.6) K/mcL Monocytes # (0.0-1.3) K/mcL Eosinophils # (0.0-0.6) K/mcL Basophils # (0.0-0.2) K/mcL Sodium Potassium Chloride Carbon Dioxide BUN Creatinine Est GFR ( Amer) Est GFR (Non-Af Amer) BUN/Creatinine Ratio Glucose Calculated Osmolality Lactic Acid (0.5-2.2) mmol/L Calcium Troponin I (< 0.04) ng/mL B-Natriuretic Peptide 18 (Less than 100) pg/mL Specimen Rejected Hemolyzed - Radiology Data Radiology results reviewed: Yes I reviewed the patient's radiology results. Chest X-Ray 07/01/18 05:36 IMPRESSION: No acute disease. D/ / Ricky Mathis MD / Ricky Mathis MD Interpreting Provider: Ricky Mathis MD - EKG Data EKG #1 EKG attestation: Yes I reviewed and interpreted this EKG. EKG results narrative: EKG shows a sinus tachycardia with a ventricular rate of 116. PACs and PVCs. No ST segment elevation or depression. Attestation Statement - Attestation Attestation: I, Jonel Houser MD, personally evaluated this patient and discussed their management with the resident physician. I reviewed the resident's note and agree with the documented findings, medical decision making, and plan of care. 62-year-old male presents to the emergency department by EMS with a complaint that he awoke from sleep at 1 AM with shortness of breath. Patient has a history of COPD and wears oxygen at 3 L by nasal cannula. No history of CHF. He states he was fine when he went to bed and just woke up short of breath. No cough. No chest pain. Patient states that he feels achy like he has the flu or something. On examination patient is a well-developed well-nourished male in no acute distress. He is alert and oriented 3. There is no cyanosis or diaphoresis. Patient is very anxious. Chest is nontender to palpation. Breath sounds are equal bilaterally with some coarse diffuse bilateral expiratory rhonchi. Heart regular with a mild tachycardia. Abdomen is soft and nontender with normal bowel sounds. No pedal edema. EKG shows sinus tachycardia with ventricular rate of 116. PAC and PVC. No ST segment elevation or depression. Chest x-ray negative. Labs reviewed. Troponin normal. BNP normal. The hospitalist, Dr. Reyez, was consulted and accepted admission of the patient for exacerbation of COPD.
[2018-07-01] MEDS ORDERED: methylPREDNISolone 125 MG/2 ML VIAL IVP ONE (06:44)
[2018-07-01] MEDS ORDERED: Albuterol 2.5 MG/3 ML NEBULIZER IH ONE (06:44)
[2018-07-01] MEDS ORDERED: 0.9 % Sodium Chloride 500 ML IVC ONE (06:51)
[2018-07-01] MEDS ORDERED: Azithromycin 500 MG in D5% in Water 250 ML IVPB ONE (06:51)
[2018-07-01 07:29] LABS: BUN/Creatinine Ratio 23 (6-26); Blood Urea Nitrogen 16 mg/dL (8-23); Calcium 8.9 mg/dL (8.6-10.3); Carbon Dioxide 31 mEq/L (23-29); Chloride 96 mEq/L (98-107); Glucose 107 mg/dL (70-105); Osmolality,Calculated 282 (280-300); Potassium 3.9 mEq/L (3.5-5.1); Sodium 135 mEq/L (136-145); eGFR For Non-African Americans > 60 (> 60)
[2018-07-01] MEDS ORDERED: Naloxone 0.4 MG/ML INJ IVP PRN (07:54)
--- NOTE | 2018-07-01 07:59 | Internal Med History&Physical ---
Date of Encounter: 07/01/18 Time of Encounter: 09:26 Internal Medicine - H&P: HPI Chief complaint: Shortness of breath Admitted From: Home Plans for Post Hospital Care: Home History of present illness: Mr. Arana is a 62 year old male with PMH of steroid dependent COPD and chronic respiratory failure on home O2, GERD on PPI He presented to the ER complaining of feeling unwell since last night. Patient reports feeling short of breath and feeing "sick to my stomach". he denied vomiting, fever or chills. He reports his SOB is above his baseline and he was concerned because he also felt very weak. He denies focal weakness, speech deficits, or facial droop. he denies chest pain, palpitations or dizziness he denies change in cough or phlegm, denies sick contacts. he has received his flu shot this year March. he denies sore throat, rhinorrhea, sick contacts, myalgias, fevers. He had one episode of a massive BM in the ER, but no diarrhea. No change in urinary habits he recently had a bronchial wash out with Dr. Greenberg 05/2018, pathology noted and negative for malignancy. Work up in ER significant for leukocytosis, chem at baseline, elevated lactate , trop negative, EKG with no St changes and CXR negative, Flu swab negative Patient was tachycardic and tachypneic after several breathing treatments even though o2 requirement is at baseline, he was presented for admission At time of review, he is tachycardic, not in significant resp distress He will be placed on observation for COPDE, he is full code Past Med Surg Social Fam HX - Past Medical History Medical history: COPD, other Psychiatric history: no psych history - Past Surgical History Surgical History: cataract, splenectomy Additional surgical history: cataract removal - Social History Smoking Status: Former smoker Smokeless Tobacco Status: No Alcohol use: occasionally Drug use: none - Family History Mother Living Status: Hx Family Cardiac Disorders: Yes (cardiomyopathy) Father Living Status: Hx Family Cardiac Disorders: Yes (AR) Hx Family Neurologic Disorders: Yes (Stroke) Internal Medicine - H&P: Meds Albuterol Sulfate [Albuterol Inhaler] 2 puff IH QID PRN 05/18/16 [History] Budesonide/Formoterol 160/4.5 [Symbicort 160/4.5] 2 puff IH BIDR 11/01/16 [History] Ipratropium/Albuterol Neb [Duoneb] 3 ml IH QID 05/18/16 [History] Oxygen 2 l NS AD 05/18/16 [History] Roflumilast [Daliresp] 500 mcg PO DAILY 05/18/16 [History] Tiotropium [Spiriva] 18 mcg IH 0700 05/18/16 [History] predniSONE [PredniSONE] 5 mg PO BID 05/18/16 [History] Acetylcysteine [W-Mopnhb-x-Cysteine] 600 mg PO BID 12/06/17 [History] Acyclovir [Zovirax] 200 mg PO BID 12/06/17 [History] Lactobacillus [Culturelle] 2 each PO DAILY 15 Days #30 cap.sprink 04/02/18 [Rx] Levofloxacin [Levaquin] 750 mg PO DAILY 5 Days #5 tablet 04/02/18 [Rx] PredniSONE [Deltasone] See Taper PO DAILY 10 Days #15 tablet 04/02/18 [Rx] Allergy/AdvReac Type Severity Reaction Status Date / Time No Known Allergies Allergy Verified 01/02/18 10:21 All Systems PM: A 10-system review of systems was performed and is negative for pertinent findings except as documented above in the HPI. - Constitutional Constitutional: as per HPI - EENT Eyes: as per HPI Ears: as per HPI Nose, mouth and throat: as per HPI - Cardiovascular Cardiovascular ROS IM: as per HPI - Respiratory Respiratory: as per HPI - Gastrointestinal Gastrointestinal: as per HPI - Musculoskeletal Musculoskeletal ROS IM: as per HPI - Integumentary Integumentary IM: as per HPI - Neurological Neurological ROS: as per HPI - Hematologic/Lymphatic Hematologic/Lymphatic: as per HPI - Constitutional Vitals: Temp Pulse Resp BP Pulse Ox 99.1 F 120 26 152/82 96 07/01/18 05:31 07/01/18 07:00 07/01/18 07:20 07/01/18 07:00 07/01/18 07:20 General appearance: Present: mild distress, A&O X 3 Exam: VSS: tachycardic and tachypneic Gen: Mild resp distress, flushed, laying flat in bed, co-operative HEENT: Moist oral mucosa, no pharygneal exudates, not cyanotic, anicteric Chest: Equal chest movement bilaterally. No chest wall tenderness Resp: Diminished breath sounds bilaterally with few scattered expiratory wheezing. Heart: S1, S2, tachycardic, no m/g/r Abdomen: Soft and not tender Extremities: NO edema Neuro: Normal speech, no facial droop, no focal deficits Psych: Appropriate affect Internal Med - H&P Results - Labs CBC & Chem 7: 07/01/18 05:50 07/01/18 06:45 Labs: Short CBC 07/01/18 Range/Units 05:50 WBC 12.3 H (4.3-11.1) K/mcL Hgb 13.9 (12.9-16.9) g/dL Hct 42.2 (37.5-50.1) % Plt Count 339 (140-400) K/mcL Neutrophils # 11.6 H (1.6-8.9) K/mcL BMP 07/01/18 07/01/18 05:50 06:45 Sodium Cancelled 135 L Potassium Cancelled 3.9 Chloride Cancelled 96 L Carbon Dioxide Cancelled 31 H BUN Cancelled 16 Creatinine Cancelled 0.69 L Glucose Cancelled 107 H Calcium Cancelled 8.9 Cardiac Enzymes 07/01/18 Range/Units 05:50 Troponin I < 0.03 (< 0.04) ng/mL - Impressions ITS Impressions Chest X-Ray 07/01/18 05:36 IMPRESSION: No acute disease. D/ / Ricky Mathis MD / Ricky Mathis MD Interpreting Provider: Ricky Mathis MD - Assessment and plan (1) Acute exacerbation of chronic obstructive pulmonary disease (COPD) Current Visit: Yes Status: Acute Assessment and plan: Continue duonebs Check RIP Continue solumedrol-patient is steroid dependent (on 5mg BID prednisone at home) Continue doxycycline (patient recently finished a course of levaquin) Continue O2 supplements by NC Continue acetylcysteine po BiPAP standby (2) DVT prophylaxis Current Visit: Yes Status: Acute Assessment and plan: SQ heparin (3) Leukocytosis Current Visit: Yes Status: Acute Assessment and plan: Likely due to steroids, patient is on sterids at home. he is afebrile Will continue to monitor CBC Qualifiers: Leukocytosis type: unspecified Qualified Code(s): D72.829 - Elevated white blood cell count, unspecified (4) Chronic respiratory failure Current Visit: Yes Status: Chronic Assessment and plan: continue O2 Qualifiers: Respiratory failure complication: hypoxia Qualified Code(s): J96.11 - Chronic respiratory failure with hypoxia (5) Lactate blood increase Current Visit: Yes Status: Acute Assessment and plan: 2.9 on arrival Give IVF Rpt lactate on 4hrs (6) Tachycardia Current Visit: Yes Status: Acute Assessment and plan: likley due to albuterol IVF hydration Continue to monitor EKG- - Time Spent With Patient Total time spent is greater than 50% in coordination of care (as documented) at patient's floor/unit and/or counseling patient:
[2018-07-01] MEDS ORDERED: MethylPREDNISolone 40 MG/ML VIAL IVP SCH (08:00)
[2018-07-01] MEDS: Ipratropium/Albuterol Neb 3 ML IH SCH ×5 (08:23→23:43)
[2018-07-01] MEDS ORDERED: 0.9 % Sodium Chloride 1,000 ML IVC SCH (09:15)
[2018-07-01] MEDS: Doxycycline 100 MG CAPSULE PO SCH ×2 (09:40→21:19)
[2018-07-01] MEDS: *HR* Acetylcysteine 20% 600 MG/3 ML ORAL SYRINGE PO SCH ×2 (09:41→21:19)
[2018-07-01] MEDS: Acyclovir 200 MG CAPSULE PO SCH ×2 (09:54→21:19)
[2018-07-01] MEDS: Lactobacillus 1 EACH CAP.SPRINK PO SCH (09:55)
[2018-07-01 12:20] LABS: Adenovirus Not Detected (Not Detect); Bordetella Pertussis Not Detected (Not Detect); Chlamydophila pneumoniae Not Detected (Not Detect); Coronavirus 229E Not Detected (Not Detect); Coronavirus HKU1 Not Detected (Not Detect); Coronavirus NL63 Not Detected (Not Detect); Coronavirus OC43 Not Detected (Not Detect); Human Metapneumovirus Not Detected (Not Detect); Human Rhinovirus/Enterovirus Not Detected (Not Detect); Influenza A Subtype 2009 H1 Not Detected (Not Detect); Influenza A Untypeable Not Detected (Not Detect); Influenza B Not Detected (Not Detect); Mycoplasma pneumoniae Not Detected (Not Detect); Parainfluenza Virus 1 Not Detected (Not Detect); Parainfluenza Virus 2 Not Detected (Not Detect); Parainfluenza Virus 3 Not Detected (Not Detect); Parainfluenza Virus 4 Not Detected (Not Detect); Respiratory Syncytial Virus Not Detected (Not Detect)
[2018-07-01] MEDS: MethylPREDNISolone 40 MG/ML VIAL IVP SCH ×2 (16:19→23:30)
[2018-07-02] MEDS: Ipratropium/Albuterol Neb 3 ML IH SCH ×4 (03:48→15:55)
[2018-07-02] MEDS ORDERED: *HR* Enoxaparin 40 MG/0.4 ML SYRINGE SQ SCH (06:00)
[2018-07-02] MEDS: MethylPREDNISolone 40 MG/ML VIAL IVP SCH (06:13)
[2018-07-02 07:22] LABS: Basophils % 0.1 %; Hematocrit 35.1 % (37.5-50.1); Immature Granulocytes % 0.3 % (0-4); Lymphocytes # 0.3 K/mcL (0.6-4.6); Lymphocytes % 2.9 %; Mean Corpuscular HGB Conc 33.6 g/dL (31.6-35.5); Mean Corpuscular Hemoglobin 32.9 pg (28.0-33.3); Mean Corpuscular Volume 97.8 fL (83.0-100.0); Mean Platelet Volume 9.6 fL (9.4-12.4); Monocytes # 0.5 K/mcL (0.0-1.3); Monocytes % 4.1 %; Neutrophils # 10.4 K/mcL (1.6-8.9); Platelet Count 297 K/mcL (140-400); Red Blood Count 3.59 M/mcL (4.19-5.50); Red Cell Distribution Width 14.6 % (11.5-14.5); Segmented Neutrophils % 92.6 %
[2018-07-02 07:23] LABS: Hemoglobin 11.8 g/dL (12.9-16.9)
[2018-07-02 07:44] LABS: BUN/Creatinine Ratio 23 (6-26); Blood Urea Nitrogen 15 mg/dL (8-23); Calcium 9.2 mg/dL (8.6-10.3); Carbon Dioxide 32 mEq/L (23-29); Chloride 99 mEq/L (98-107); Glucose 145 mg/dL (70-105); Osmolality,Calculated 285 (280-300); Potassium 4.2 mEq/L (3.5-5.1); Sodium 136 mEq/L (136-145); eGFR For Non-African Americans > 60 (> 60)
[2018-07-02] MEDS: *HR* Acetylcysteine 20% 600 MG/3 ML ORAL SYRINGE PO SCH (08:50)
[2018-07-02] MEDS: Doxycycline 100 MG CAPSULE PO SCH (08:50)
[2018-07-02] MEDS: Lactobacillus 1 EACH CAP.SPRINK PO SCH (08:50)
[2018-07-02] MEDS: Acyclovir 200 MG CAPSULE PO SCH (08:50)
[2018-07-02] MEDS ORDERED: predniSONE 20 MG TABLET PO SCH (09:00)
[2018-07-02 11:10] VITALS: BP 135/77
--- NOTE | 2018-07-02 11:13 | Internal Med Progress Note ---
Hospitalist Progress Note - Encounter Date of Encounter: 07/02/18 Time of Encounter: 11:13 - Exam Vitals: Temp Pulse Resp BP Pulse Ox 98.0 F 87 18 135/77 93 07/02/18 11:09 07/02/18 11:09 07/02/18 11:09 07/02/18 11:09 07/02/18 11:09 - Assessment and Plan (1) Acute exacerbation of chronic obstructive pulmonary disease (COPD) Current Visit: Yes Status: Acute (2) DVT prophylaxis Current Visit: Yes Status: Acute (3) Leukocytosis Current Visit: Yes Status: Acute (4) Chronic respiratory failure Current Visit: Yes Status: Chronic (5) Lactate blood increase Current Visit: Yes Status: Acute (6) Tachycardia Current Visit: Yes Status: Acute - Time Spent with Patient Total time spent is greater than 50% in coordination of care (as documented) at patient's floor/unit and/or counseling patient: Internal Medicine: Result - Labs CBC & Chem 7: 07/02/18 07:03 07/02/18 07:03 Labs: Short CBC 07/02/18 Range/Units 07:03 WBC 11.2 H (4.3-11.1) K/mcL Hgb 11.8 L D (12.9-16.9) g/dL Hct 35.1 L (37.5-50.1) % Plt Count 297 (140-400) K/mcL Neutrophils # 10.4 H (1.6-8.9) K/mcL BMP 07/02/18 07:03 Sodium 136 Potassium 4.2 Chloride 99 Carbon Dioxide 32 H BUN 15 Creatinine 0.64 L Glucose 145 H Calcium 9.2 Consult Discharge Plan - Plan Referrals: Maria Victoria Garcia MD [Primary Care Provider] - (3) Leukocytosis Qualifiers: Leukocytosis type: unspecified Qualified Code(s): D72.829 - Elevated white blood cell count, unspecified (4) Chronic respiratory failure Qualifiers: Respiratory failure complication: hypoxia Qualified Code(s): J96.11 - Chronic respiratory failure with hypoxia
--- NOTE | 2018-07-02 13:10 | Discharge Summary ---
- NOTES TO OUTPATIENT PROVIDER Notes to Outpatient Provider: Admitted for abdominal pain and nasea, associated shortness of breath. RIP negative, CXR negative, trops negative X2, EKG unremarkable. He was started on COPDE management and he had a massive BM while in the hospital which patient stated improved his symptoms. He is currently asymptomatic and is discharged home with 5 days of doxycycline for COPDE. Follow up with PCP and resume home dose of steroids. Orders not resulted at time of discharge: Pending orders 07/01/18 05:36 ECG 12 lead ECG [ECG] Stat 07/03/18 04:00 CBC [Complete Blood Count] [HEME] AM 0400 Date of Encounter: 07/02/18 Time of Encounter: 13:07 - Discharge Diagnosis (1) Acute exacerbation of chronic obstructive pulmonary disease (COPD) Priority: Primary Status: Acute (2) DVT prophylaxis Priority: Primary Status: Acute (3) Leukocytosis Priority: Primary Status: Acute Qualifiers: Leukocytosis type: unspecified Qualified Code(s): D72.829 - Elevated white blood cell count, unspecified (4) Chronic respiratory failure Priority: Secondary Status: Chronic Qualifiers: Respiratory failure complication: hypoxia Qualified Code(s): J96.11 - Chronic respiratory failure with hypoxia (5) Lactate blood increase Priority: Primary Status: Resolved (6) Tachycardia Priority: Primary Status: Resolved Hospital course: Mr. Arana is a 62 year old male with PMH of steroid dependent COPD and chronic respiratory failure on home O2, GERD on PPI He presented to the ER complaining of feeling unwell since last night. Patient reports feeling short of breath and feeing "sick to my stomach". he denied vomiting, fever or chills. He reports his SOB is above his baseline and he was concerned because he also felt very weak. He denies focal weakness, speech deficits, or facial droop. he denies chest pain, palpitations or dizziness he denies change in cough or phlegm, denies sick contacts. he has received his flu shot this year March. he denies sore throat, rhinorrhea, sick contacts, myalgias, fevers. He had one episode of a massive BM in the ER, but no diarrhea. No change in urinary habits He recently had a bronchial wash out with Dr. Greenberg 05/2018, pathology noted and negative for malignancy. Work up in ER significant for leukocytosis, chem at baseline, elevated lactate , trop negative, EKG with no St changes and CXR negative, Flu swab negative He was managed with IVF hydration, steroids and po antibiotiucs On evaluation this morning, he denies new complains and states he is back to his baseline. RIP negative, lactate normalized with IVF and his tachycardia and abdominal pain and nausea has resolved He is discharged home in clinically stable state Follow up with PCP Discharge discussed with: patient, nurse - Time Spent with Patient Total time spent providing and/or coordinating discharge services: Less than 30 minutes - Discharge Medications Prescriptions: Doxycycline 100 mg PO BID #10 capsule Home Medications: Albuterol Sulfate [Albuterol Inhaler] 2 puff IH QID PRN 05/18/16 [History] Budesonide/Formoterol 160/4.5 [Symbicort 160/4.5] 2 puff IH BIDR 05/18/16 [History] Ipratropium/Albuterol Neb [Duoneb] 3 ml IH QID 05/18/16 [History] Oxygen 2 l NS AD 05/18/16 [History] Roflumilast [Daliresp] 500 mcg PO DAILY 05/18/16 [History] Tiotropium [Spiriva] 18 mcg IH 0700 05/18/16 [History] predniSONE [PredniSONE] 5 mg PO BID 05/18/16 [History] Acetylcysteine [S-Dhsxeh-g-Cysteine] 600 mg PO BID 12/06/17 [History] Acyclovir [Zovirax] 200 mg PO BID 12/06/17 [History] Lactobacillus [Culturelle] 2 each PO DAILY 15 Days #30 cap.sprink 04/02/18 [Rx] PredniSONE [Deltasone] See Taper PO DAILY 10 Days #15 tablet 04/02/18 [Rx] Doxycycline 100 mg PO BID #10 capsule 07/02/18 [Rx] Allergies/Adverse Reactions: Allergy/AdvReac Type Severity Reaction Status Date / Time No Known Allergies Allergy Verified 01/02/18 10:21 Date of admission: 07/01/18 07:08 Primary care physician: Maria Victoria Garcia MD Discharging clinician: Prasanth Terry Anticipated date of discharge: 07/02/18 - Constitutional Vitals: Temp Pulse Resp BP Pulse Ox 98.0 F 87 18 135/77 93 07/02/18 11:09 07/02/18 11:09 07/02/18 11:16 07/02/18 11:09 07/02/18 11:16 General appearance: Present: A&O X 3, no acute distress Exam: VSS Gen: not in distress, flushed, laying flat in bed, co-operative HEENT: Moist oral mucosa, no pharygneal exudates, not cyanotic, anicteric Chest: Equal chest movement bilaterally. No chest wall tenderness Resp: CTAB, no added sounds Heart: S1, S2, tachycardic, no m/g/r Abdomen: Soft and not tender Extremities: NO edema Neuro: Normal speech, no facial droop, no focal deficits Psych: Appropriate affect - Patient Status Disposition: Home, Self-Care Condition: Good Functional capacity at discharge: independent ambulation Overall status at discharge: patient is back to baseline - Discharge Instructions Follow Up With: Maria Victoria Garcia MD [Primary Care Provider] - - Diet and Activity Activity: resume usual activities as tolerated, wear oxygen at all times Diet: regular diet
--- NOTE | 2018-07-03 14:13 | Electrocardiograph Report ---
[address] [place], [place] [address] Test Date: 2018-07-01 Pat Name: Ulysses Arana Department: EXAM3 Room: 3A46 Gender: M Marketing Director Assisted Living: : 1955 Requested By: Sven Simon Order Number: [id number] Reading MD: Hema Walker Measurements Intervals [place] Rate: 116 P: 76 WI: 142 QRS: -6 QRSD: 92 T: 83 QT: 319 QTc: 444 Interpretive Statements Sinus tachycardia PAC PVC Nonspecific ST-T changes Electronically Signed On 07-03-2018 14:12:29 EST by Hema Walker
== END 2018-07-02 14:36 | disposition home or self-care (01) ==
LOC: EMEROOARM 05:24 → 3ANU 05:24
PROVIDERS: ADMIT Family Medicine; ATTEND Family Medicine

== ENCOUNTER 2019-06-10 23:36 | Inpatient (IN) ==
[2019-06-10] MEDS ORDERED: Azithromycin 500 MG in 0.9 % Sodium Chloride 250 ML IVPB ONE (23:45)
[2019-06-10] MEDS ORDERED: cefTRIAXone 1,000 MG in Water for inj. (sterile) 10 ML IVP ONE (23:45)
[2019-06-11 00:30] LABS: Alanine Aminotransferase 20 Units/L (7-52); Albumin/Globulin Ratio 1.1 (1.1-2.2); Alkaline Phosphatase 68 Units/L (34-104); Aspartate Amino Transferase 25 Units/L (13-39); BUN/Creatinine Ratio 15 (6-26); Bilirubin,Direct 0.2 mg/dL (0.0-0.2); Bilirubin,Indirect 0.7 mg/dL (0.0-1.0); Bilirubin,Total 0.9 mg/dL (0.3-1.0); Blood Urea Nitrogen 12 mg/dL (8-23); Carbon Dioxide 27 mEq/L (23-29); Chloride 92 mEq/L (98-107); Globulin 3.6 g/dL (2.4-3.5); Glucose 99 mg/dL (70-105); Magnesium 1.8 mg/dL (1.6-2.6); Osmolality,Calculated 268 (280-300); Phosphorous 2.9 mg/dL (2.7-4.5); Potassium 4.3 mEq/L (3.5-5.1); Sodium 129 mEq/L (136-145); Total Protein 7.6 g/dL (6.4-8.9); Troponin I 0.03 ng/mL (< 0.04); eGFR For African Americans > 60 (> 60); eGFR For Non-African Americans > 60 (> 60)
[2019-06-11] MEDS ORDERED: Acetaminophen 325 MG TABLET PO ONE (00:30)
[2019-06-11 00:34] LABS: Basophils % 0.3 %; Eosinophils % 0.1 %; Hematocrit 40.2 % (37.5-50.1); Hemoglobin 13.5 g/dL (12.9-16.9); Immature Granulocytes % 0.5 % (0-4); Lymphocytes # 0.7 K/mcL (0.6-4.6); Lymphocytes % 4.8 %; Mean Corpuscular HGB Conc 33.6 g/dL (31.6-35.5); Mean Corpuscular Hemoglobin 34.5 pg (28.0-33.3); Mean Corpuscular Volume 102.8 fL (83.0-100.0); Mean Platelet Volume 10.5 fL (9.4-12.4); Monocytes # 2.2 K/mcL (0.0-1.3); Monocytes % 14.4 %; Neutrophils # 12.1 K/mcL (1.6-8.9); Platelet Count 344 K/mcL (140-400); Red Blood Count 3.91 M/mcL (4.19-5.50); Red Cell Distribution Width 14.7 % (11.5-14.5); Segmented Neutrophils % 79.9 %; White Blood Count 15.1 K/mcL (4.3-11.1)
[2019-06-11] MEDS: 0.9 % Sodium Chloride 1,000 ML IVC SCH ×5 (00:47→21:05)
[2019-06-11] MEDS ORDERED: Ipratropium/Albuterol Neb 3 ML IH ONE (01:12)
[2019-06-11] MEDS ORDERED: methylPREDNISolone 125 MG/2 ML VIAL IVP ONE (01:12)
[2019-06-11 01:20] LABS: ABG Base Excess 2 mEq/L (-2 to 3); ABG HCO3 26 mEq/L (21-27); ABG Oxygen Saturation 95 % (95-98); ABG PCO2 41 mmHg (35-45); ABG PH 7.42 pH Units (7.32-7.45); ABG PO2 72 mmHg (85-104); ABG TCO2 28 mEq/L (20-26)
[2019-06-11 02:00] LABS: Bilirubin,Urine Small (Negative); Blood,Urine Trace (Negative); Clarity,Urine Cloudy (Clear); Color,Urine Yellow (Yellow); Glucose,Urine (UA) Normal (Normal); Ketones,Urine 80 mg/dL (Negative); Leukocyte Esterase,Urine Trace (Negative); Nitrite,Urine Negative (Negative); Protein,Urine 30 mg/dL (Neg-Trace); Specific Gravity,Urine 1.025 (1.010-1.025); Urobilinogen,Urine Normal (Normal)
[2019-06-11 02:02] LABS: Bacteria,Urine None Seen per hpf (None-Few); Hyaline Casts,Urine None Seen per lpf (None-Few); RBC,Urine 0-3 per hpf (0-3); Squamous Epithelial Cell,Urine Moderate per lpf (None-Few)
[2019-06-11] MEDS: Ipratropium/Albuterol Neb 3 ML IH SCH ×5 (04:43→20:09)
[2019-06-11] MEDS ORDERED: Naloxone 0.4 MG/ML INJ IVP PRN (04:50)
[2019-06-11] MEDS ORDERED: Ondansetron ODT 4 MG TAB.RAPDIS SL PRN (04:50)
[2019-06-11] MEDS ORDERED: NON-FORMULARY MEDICATION 1 EACH EACH (Oxygen 2 L) NS SCH (05:00)
[2019-06-11] MEDS: *HR* Heparin 5,000 UNIT/ML VIAL SQ SCH ×3 (05:37→21:05)
[2019-06-11] MEDS ORDERED: (Roflumilast [Daliresp] 500 MCG) PO SCH (09:00)
[2019-06-11] MEDS ORDERED: predniSONE 20 MG TABLET PO SCH (09:00)
[2019-06-11] MEDS ORDERED: Tiotropium 18 MCG inhalation IH SCH (10:00)
[2019-06-11] MEDS ORDERED: Budesonide/Formoterol 160/4.5 1 PUFF INH IH SCH (10:00)
[2019-06-11] MEDS: Acyclovir 200 MG CAPSULE PO SCH ×2 (10:43→21:04)
[2019-06-11] MEDS: Lactobacillus 1 EACH CAP.SPRINK PO SCH (10:50)
[2019-06-11 11:14] LABS: Hematocrit 37.5 % (37.5-50.1); Hemoglobin 12.8 g/dL (12.9-16.9); Mean Corpuscular HGB Conc 34.1 g/dL (31.6-35.5); Mean Corpuscular Hemoglobin 34.2 pg (28.0-33.3); Mean Corpuscular Volume 100.3 fL (83.0-100.0); Mean Platelet Volume 10.2 fL (9.4-12.4); Platelet Count 353 K/mcL (140-400); Red Blood Count 3.74 M/mcL (4.19-5.50); Red Cell Distribution Width 14.6 % (11.5-14.5); White Blood Count 8.9 K/mcL (4.3-11.1)
[2019-06-11 11:29] LABS: BUN/Creatinine Ratio 19 (6-26); Blood Urea Nitrogen 14 mg/dL (8-23); Calcium 9.1 mg/dL (8.6-10.3); Carbon Dioxide 23 mEq/L (23-29); Chloride 102 mEq/L (98-107); Glucose 183 mg/dL (70-105); Osmolality,Calculated 285 (280-300); Potassium 4.2 mEq/L (3.5-5.1); Sodium 135 mEq/L (136-145); eGFR For African Americans > 60 (> 60); eGFR For Non-African Americans > 60 (> 60)
[2019-06-11] MEDS: (Roflumilast [Daliresp] 500 MCG) PO SCH (14:07)
[2019-06-11] MEDS: MethylPREDNISolone 40 MG/ML VIAL IVP SCH ×2 (17:38→23:13)
[2019-06-11] MEDS: cefTRIAXone 1,000 MG in Water for inj. (sterile) 10 ML IVP SCH (17:39)
[2019-06-11] MEDS: Azithromycin 500 MG in 0.9 % Sodium Chloride 250 ML IVPB SCH (17:40)
[2019-06-11] MEDS ORDERED: cefTRIAXone 2,000 MG in Water for inj. (sterile) 20 ML IVP SCH (18:00)
[2019-06-11] MEDS: Budesonide/Formoterol 160/4.5 1 PUFF INH IH SCH (20:09)
[2019-06-11] MEDS: *HR* Acetylcysteine 20% 600 MG/3 ML ORAL SYRINGE PO SCH (21:04)
[2019-06-12] MEDS: Ipratropium/Albuterol Neb 3 ML IH SCH ×7 (00:36→23:18)
[2019-06-12] MEDS: 0.9 % Sodium Chloride 1,000 ML IVC SCH (04:56)
[2019-06-12] MEDS: *HR* Heparin 5,000 UNIT/ML VIAL SQ SCH ×3 (04:58→21:17)
[2019-06-12 05:09] LABS: Basophils % 0.1 %; Hematocrit 33.7 % (37.5-50.1); Immature Granulocytes % 0.7 % (0-4); Lymphocytes # 0.3 K/mcL (0.6-4.6); Lymphocytes % 2.6 %; Mean Corpuscular HGB Conc 33.2 g/dL (31.6-35.5); Mean Corpuscular Hemoglobin 34.6 pg (28.0-33.3); Mean Platelet Volume 10.3 fL (9.4-12.4); Monocytes # 0.7 K/mcL (0.0-1.3); Monocytes % 6.3 %; Neutrophils # 10.6 K/mcL (1.6-8.9); Platelet Count 343 K/mcL (140-400); Red Blood Count 3.24 M/mcL (4.19-5.50); Red Cell Distribution Width 14.8 % (11.5-14.5); Segmented Neutrophils % 90.3 %; White Blood Count 11.8 K/mcL (4.3-11.1)
[2019-06-12 05:20] LABS: Hemoglobin 11.2 g/dL (12.9-16.9)
[2019-06-12 05:29] LABS: BUN/Creatinine Ratio 25 (6-26); Blood Urea Nitrogen 14 mg/dL (8-23); Carbon Dioxide 22 mEq/L (23-29); Chloride 104 mEq/L (98-107); Glucose 160 mg/dL (70-105); Osmolality,Calculated 284 (280-300); Sodium 135 mEq/L (136-145); eGFR For African Americans > 60 (> 60); eGFR For Non-African Americans > 60 (> 60)
[2019-06-12] MEDS: Budesonide/Formoterol 160/4.5 1 PUFF INH IH SCH ×2 (07:58→20:25)
[2019-06-12] MEDS: *HR* Acetylcysteine 20% 600 MG/3 ML ORAL SYRINGE PO SCH ×2 (09:51→21:17)
[2019-06-12] MEDS: Acyclovir 200 MG CAPSULE PO SCH ×2 (09:51→21:18)
[2019-06-12] MEDS: Lactobacillus 1 EACH CAP.SPRINK PO SCH (09:52)
[2019-06-12] MEDS: MethylPREDNISolone 40 MG/ML VIAL IVP SCH ×2 (09:54→17:49)
[2019-06-12] MEDS: (Roflumilast [Daliresp] 500 MCG) PO SCH (09:58)
[2019-06-12 10:34] LABS: Adenovirus Not Detected (Not Detect); Bordetella Pertussis Not Detected (Not Detect); Chlamydophila pneumoniae Not Detected (Not Detect); Coronavirus 229E Not Detected (Not Detect); Coronavirus HKU1 Not Detected (Not Detect); Coronavirus NL63 Not Detected (Not Detect); Coronavirus OC43 Not Detected (Not Detect); Human Metapneumovirus Not Detected (Not Detect); Human Rhinovirus/Enterovirus Not Detected (Not Detect); Influenza A Subtype 2009 H1 Not Detected (Not Detect); Influenza A Untypeable Not Detected (Not Detect); Influenza B Not Detected (Not Detect); Mycoplasma pneumoniae Not Detected (Not Detect); Parainfluenza Virus 1 Not Detected (Not Detect); Parainfluenza Virus 2 Not Detected (Not Detect); Parainfluenza Virus 3 Not Detected (Not Detect); Parainfluenza Virus 4 Not Detected (Not Detect); Respiratory Syncytial Virus Not Detected (Not Detect)
[2019-06-12] MEDS: Azithromycin 500 MG in 0.9 % Sodium Chloride 250 ML IVPB SCH (17:38)
[2019-06-12] MEDS: cefTRIAXone 1,000 MG in Water for inj. (sterile) 10 ML IVP SCH (17:41)
[2019-06-13] MEDS: Acetaminophen 325 MG TABLET PO PRN (02:53)
[2019-06-13] MEDS: Menthol 9.1 MG LOZENGE PO PRN ×2 (02:54→05:23)
[2019-06-13 04:45] LABS: Hematocrit 34.9 % (37.5-50.1); Hemoglobin 11.8 g/dL (12.9-16.9); Mean Corpuscular HGB Conc 33.8 g/dL (31.6-35.5); Mean Corpuscular Hemoglobin 34.5 pg (28.0-33.3); Mean Platelet Volume 10.2 fL (9.4-12.4); Platelet Count 394 K/mcL (140-400); Red Blood Count 3.42 M/mcL (4.19-5.50); Red Cell Distribution Width 14.8 % (11.5-14.5); White Blood Count 12.7 K/mcL (4.3-11.1)
[2019-06-13] MEDS: Ipratropium/Albuterol Neb 3 ML IH SCH ×6 (04:54→23:48)
[2019-06-13 05:07] LABS: BUN/Creatinine Ratio 25 (6-26); Blood Urea Nitrogen 15 mg/dL (8-23); Calcium 9.5 mg/dL (8.6-10.3); Carbon Dioxide 31 mEq/L (23-29); Chloride 100 mEq/L (98-107); Glucose 137 mg/dL (70-105); Osmolality,Calculated 285 (280-300); Potassium 3.9 mEq/L (3.5-5.1); Sodium 136 mEq/L (136-145); eGFR For African Americans > 60 (> 60); eGFR For Non-African Americans > 60 (> 60)
[2019-06-13] MEDS: *HR* Heparin 5,000 UNIT/ML VIAL SQ SCH ×3 (05:18→21:30)
[2019-06-13] MEDS: MethylPREDNISolone 40 MG/ML VIAL IVP SCH ×2 (05:18→18:17)
[2019-06-13] MEDS: Budesonide/Formoterol 160/4.5 1 PUFF INH IH SCH ×2 (07:11→20:23)
[2019-06-13] MEDS: *HR* Acetylcysteine 20% 600 MG/3 ML ORAL SYRINGE PO SCH ×2 (09:15→21:30)
[2019-06-13] MEDS: (Roflumilast [Daliresp] 500 MCG) PO SCH (09:15)
[2019-06-13] MEDS: Lactobacillus 1 EACH CAP.SPRINK PO SCH (09:15)
[2019-06-13] MEDS: Acyclovir 200 MG CAPSULE PO SCH ×2 (09:16→21:30)
[2019-06-13] MEDS: Azithromycin 500 MG in 0.9 % Sodium Chloride 250 ML IVPB SCH (18:16)
[2019-06-13] MEDS: cefTRIAXone 1,000 MG in Water for inj. (sterile) 10 ML IVP SCH (18:17)
[2019-06-14 02:43] LABS: Hematocrit 35.7 % (37.5-50.1); Hemoglobin 11.9 g/dL (12.9-16.9); Mean Corpuscular HGB Conc 33.3 g/dL (31.6-35.5); Mean Corpuscular Hemoglobin 33.8 pg (28.0-33.3); Mean Corpuscular Volume 101.4 fL (83.0-100.0); Mean Platelet Volume 10.4 fL (9.4-12.4); Platelet Count 426 K/mcL (140-400); Red Blood Count 3.52 M/mcL (4.19-5.50); Red Cell Distribution Width 14.6 % (11.5-14.5); White Blood Count 11.2 K/mcL (4.3-11.1)
[2019-06-14] MEDS: Acetaminophen 325 MG TABLET PO PRN (03:37)
[2019-06-14] MEDS: Ipratropium/Albuterol Neb 3 ML IH SCH ×5 (04:25→20:02)
[2019-06-14] MEDS: *HR* Heparin 5,000 UNIT/ML VIAL SQ SCH ×3 (05:13→21:26)
[2019-06-14] MEDS: MethylPREDNISolone 40 MG/ML VIAL IVP SCH ×2 (05:13→16:52)
[2019-06-14] MEDS: Budesonide/Formoterol 160/4.5 1 PUFF INH IH SCH ×2 (07:29→20:02)
[2019-06-14] MEDS: *HR* Acetylcysteine 20% 600 MG/3 ML ORAL SYRINGE PO SCH ×2 (07:55→20:00)
[2019-06-14] MEDS: Lactobacillus 1 EACH CAP.SPRINK PO SCH (07:57)
[2019-06-14] MEDS: Acyclovir 200 MG CAPSULE PO SCH ×2 (07:57→19:58)
[2019-06-14] MEDS: (Roflumilast [Daliresp] 500 MCG) PO SCH (07:58)
[2019-06-14] MEDS: cefTRIAXone 1,000 MG in Water for inj. (sterile) 10 ML IVP SCH (16:54)
[2019-06-14] MEDS ORDERED: NIFEdipine 10 MG CAPSULE PO ONE (23:54)
[2019-06-15] MEDS: Ipratropium/Albuterol Neb 3 ML IH SCH ×5 (00:30→20:17)
[2019-06-15 01:36] LABS: Hematocrit 37.7 % (37.5-50.1); Hemoglobin 12.6 g/dL (12.9-16.9); Mean Corpuscular HGB Conc 33.4 g/dL (31.6-35.5); Mean Corpuscular Hemoglobin 33.6 pg (28.0-33.3); Mean Corpuscular Volume 100.5 fL (83.0-100.0); Mean Platelet Volume 10.1 fL (9.4-12.4); Platelet Count 456 K/mcL (140-400); Red Blood Count 3.75 M/mcL (4.19-5.50); Red Cell Distribution Width 14.2 % (11.5-14.5)
[2019-06-15 02:00] LABS: BUN/Creatinine Ratio 26 (6-26); Blood Urea Nitrogen 20 mg/dL (8-23); Calcium 9.6 mg/dL (8.6-10.3); Carbon Dioxide 32 mEq/L (23-29); Chloride 95 mEq/L (98-107); Glucose 157 mg/dL (70-105); Osmolality,Calculated 284 (280-300); Potassium 4.1 mEq/L (3.5-5.1); Sodium 134 mEq/L (136-145); eGFR For African Americans > 60 (> 60); eGFR For Non-African Americans > 60 (> 60)
[2019-06-15] MEDS: MethylPREDNISolone 40 MG/ML VIAL IVP SCH ×2 (05:36→16:42)
[2019-06-15] MEDS: *HR* Heparin 5,000 UNIT/ML VIAL SQ SCH ×3 (05:38→23:14)
[2019-06-15] MEDS ORDERED: Levalbuterol Neb 1.25 MG/3 ML IH SCH (06:04)
[2019-06-15 06:38] LABS: ABG Base Excess 8 mEq/L (-2 to 3); ABG HCO3 34 mEq/L (21-27); ABG Oxygen Saturation 93 % (95-98); ABG PCO2 53 mmHg (35-45); ABG PH 7.41 pH Units (7.32-7.45); ABG PO2 67 mmHg (85-104); ABG TCO2 36 mEq/L (20-26)
[2019-06-15] MEDS ORDERED: *HR* FentaNYL (PF) 100 MCG/2 ML VIAL IVP ONE (09:42)
[2019-06-15] MEDS ORDERED: *HR* FentaNYL (PF) 100 MCG/2 ML VIAL IVP PRN (09:50)
[2019-06-15] MEDS: Lactobacillus 1 EACH CAP.SPRINK PO SCH (10:04)
[2019-06-15] MEDS: Acyclovir 200 MG CAPSULE PO SCH ×2 (10:04→23:15)
[2019-06-15] MEDS: Acetaminophen 325 MG TABLET PO PRN (10:05)
[2019-06-15] MEDS: *HR* Acetylcysteine 20% 600 MG/3 ML ORAL SYRINGE PO SCH ×2 (10:05→23:14)
[2019-06-15] MEDS: (Roflumilast [Daliresp] 500 MCG) PO SCH (10:07)
[2019-06-15] MEDS: Budesonide/Formoterol 160/4.5 1 PUFF INH IH SCH ×2 (11:09→20:17)
[2019-06-15] MEDS: *HR* OxyCODONE/APAP 5/325 TABLET PO PRN (14:02)
[2019-06-15] MEDS: cefTRIAXone 1,000 MG in Water for inj. (sterile) 10 ML IVP SCH (16:41)
[2019-06-16 02:20] LABS: Hematocrit 37.8 % (37.5-50.1); Hemoglobin 12.5 g/dL (12.9-16.9); Mean Corpuscular HGB Conc 33.1 g/dL (31.6-35.5); Mean Corpuscular Hemoglobin 33.8 pg (28.0-33.3); Mean Corpuscular Volume 102.2 fL (83.0-100.0); Mean Platelet Volume 9.4 fL (9.4-12.4); Platelet Count 472 K/mcL (140-400); Red Cell Distribution Width 14.1 % (11.5-14.5); White Blood Count 8.5 K/mcL (4.3-11.1)
[2019-06-16 02:39] LABS: BUN/Creatinine Ratio 26 (6-26); Blood Urea Nitrogen 22 mg/dL (8-23); Calcium 9.6 mg/dL (8.6-10.3); Carbon Dioxide 34 mEq/L (23-29); Chloride 93 mEq/L (98-107); Glucose 132 mg/dL (70-105); Osmolality,Calculated 285 (280-300); Sodium 135 mEq/L (136-145); eGFR For African Americans > 60 (> 60); eGFR For Non-African Americans > 60 (> 60)
[2019-06-16] MEDS: Ipratropium/Albuterol Neb 3 ML IH SCH ×6 (04:11→20:49)
[2019-06-16] MEDS: *HR* Heparin 5,000 UNIT/ML VIAL SQ SCH ×3 (06:32→22:11)
[2019-06-16] MEDS: MethylPREDNISolone 40 MG/ML VIAL IVP SCH ×2 (06:33→18:15)
[2019-06-16] MEDS: Budesonide/Formoterol 160/4.5 1 PUFF INH IH SCH ×2 (07:44→20:49)
[2019-06-16] MEDS: Acyclovir 200 MG CAPSULE PO SCH ×2 (10:26→20:55)
[2019-06-16] MEDS: Lactobacillus 1 EACH CAP.SPRINK PO SCH (10:26)
[2019-06-16] MEDS: (Roflumilast [Daliresp] 500 MCG) PO SCH (10:27)
[2019-06-16] MEDS: *HR* OxyCODONE/APAP 5/325 TABLET PO PRN ×2 (14:29→20:55)
[2019-06-16] MEDS: *HR* Acetylcysteine 20% 600 MG/3 ML ORAL SYRINGE PO SCH ×2 (15:35→22:09)
[2019-06-16] MEDS: cefTRIAXone 1,000 MG in Water for inj. (sterile) 10 ML IVP SCH (18:15)
[2019-06-17] MEDS: Ipratropium/Albuterol Neb 3 ML IH SCH ×6 (00:14→20:56)
[2019-06-17 02:40] LABS: Hematocrit 38.8 % (37.5-50.1); Hemoglobin 12.8 g/dL (12.9-16.9); Mean Corpuscular Hemoglobin 34.1 pg (28.0-33.3); Mean Corpuscular Volume 103.5 fL (83.0-100.0); Mean Platelet Volume 9.6 fL (9.4-12.4); Platelet Count 482 K/mcL (140-400); Red Blood Count 3.75 M/mcL (4.19-5.50); Red Cell Distribution Width 14.2 % (11.5-14.5); White Blood Count 9.3 K/mcL (4.3-11.1)
[2019-06-17 02:55] LABS: BUN/Creatinine Ratio 33 (6-26); Blood Urea Nitrogen 25 mg/dL (8-23); Calcium 9.6 mg/dL (8.6-10.3); Carbon Dioxide 32 mEq/L (23-29); Chloride 96 mEq/L (98-107); Glucose 156 mg/dL (70-105); Osmolality,Calculated 284 (280-300); Potassium 4.4 mEq/L (3.5-5.1); Sodium 133 mEq/L (136-145); eGFR For African Americans > 60 (> 60); eGFR For Non-African Americans > 60 (> 60)
[2019-06-17] MEDS: *HR* OxyCODONE/APAP 5/325 TABLET PO PRN ×4 (03:17→23:54)
[2019-06-17] MEDS: MethylPREDNISolone 40 MG/ML VIAL IVP SCH ×2 (05:55→17:20)
[2019-06-17] MEDS: *HR* Heparin 5,000 UNIT/ML VIAL SQ SCH ×3 (05:55→21:19)
[2019-06-17] MEDS: Budesonide/Formoterol 160/4.5 1 PUFF INH IH SCH ×2 (07:58→20:56)
[2019-06-17] MEDS: (Roflumilast [Daliresp] 500 MCG) PO SCH (08:29)
[2019-06-17] MEDS: Acyclovir 200 MG CAPSULE PO SCH ×2 (08:30→21:18)
[2019-06-17] MEDS: Lactobacillus 1 EACH CAP.SPRINK PO SCH (08:30)
[2019-06-17] MEDS: *HR* Acetylcysteine 20% 600 MG/3 ML ORAL SYRINGE PO SCH ×2 (10:44→21:18)
[2019-06-17] MEDS: cefTRIAXone 1,000 MG in Water for inj. (sterile) 10 ML IVP SCH (17:19)
[2019-06-18] MEDS: Ipratropium/Albuterol Neb 3 ML IH SCH ×7 (00:36→23:57)
[2019-06-18 03:01] LABS: Hematocrit 39.4 % (37.5-50.1); Hemoglobin 13.2 g/dL (12.9-16.9); Mean Corpuscular HGB Conc 33.5 g/dL (31.6-35.5); Mean Corpuscular Hemoglobin 33.6 pg (28.0-33.3); Mean Corpuscular Volume 100.3 fL (83.0-100.0); Mean Platelet Volume 9.2 fL (9.4-12.4); Platelet Count 547 K/mcL (140-400); Red Blood Count 3.93 M/mcL (4.19-5.50); Red Cell Distribution Width 14.2 % (11.5-14.5); White Blood Count 10.8 K/mcL (4.3-11.1)
[2019-06-18 03:26] LABS: BUN/Creatinine Ratio 31 (6-26); Blood Urea Nitrogen 24 mg/dL (8-23); Calcium 9.4 mg/dL (8.6-10.3); Carbon Dioxide 29 mEq/L (23-29); Chloride 96 mEq/L (98-107); Glucose 140 mg/dL (70-105); Osmolality,Calculated 280 (280-300); Potassium 4.7 mEq/L (3.5-5.1); Sodium 132 mEq/L (136-145); eGFR For African Americans > 60 (> 60); eGFR For Non-African Americans > 60 (> 60)
[2019-06-18] MEDS: *HR* Heparin 5,000 UNIT/ML VIAL SQ SCH ×3 (05:08→20:25)
[2019-06-18] MEDS: MethylPREDNISolone 40 MG/ML VIAL IVP SCH (05:25)
[2019-06-18] MEDS: Budesonide/Formoterol 160/4.5 1 PUFF INH IH SCH ×2 (07:40→20:29)
[2019-06-18] MEDS: *HR* Acetylcysteine 20% 600 MG/3 ML ORAL SYRINGE PO SCH ×2 (10:00→20:25)
[2019-06-18] MEDS: Acyclovir 200 MG CAPSULE PO SCH ×2 (10:00→20:25)
[2019-06-18] MEDS: (Roflumilast [Daliresp] 500 MCG) PO SCH (10:00)
[2019-06-18] MEDS: Lactobacillus 1 EACH CAP.SPRINK PO SCH (10:00)
[2019-06-18] MEDS ORDERED: *HR* LORazepam 0.5 MG TABLET PO PRN (10:46)
[2019-06-18] MEDS: Doxycycline 100 MG CAPSULE PO SCH (20:25)
[2019-06-19 02:44] LABS: Hematocrit 37.4 % (37.5-50.1); Hemoglobin 12.5 g/dL (12.9-16.9); Mean Corpuscular HGB Conc 33.4 g/dL (31.6-35.5); Mean Corpuscular Hemoglobin 34.2 pg (28.0-33.3); Mean Corpuscular Volume 102.2 fL (83.0-100.0); Mean Platelet Volume 9.2 fL (9.4-12.4); Platelet Count 498 K/mcL (140-400); Red Blood Count 3.66 M/mcL (4.19-5.50); Red Cell Distribution Width 14.6 % (11.5-14.5); White Blood Count 11.7 K/mcL (4.3-11.1)
[2019-06-19 02:48] LABS: BUN/Creatinine Ratio 35 (6-26); Blood Urea Nitrogen 28 mg/dL (8-23); Calcium 9.8 mg/dL (8.6-10.3); Carbon Dioxide 29 mEq/L (23-29); Chloride 96 mEq/L (98-107); Glucose 121 mg/dL (70-105); Osmolality,Calculated 285 (280-300); Potassium 4.1 mEq/L (3.5-5.1); Sodium 134 mEq/L (136-145); eGFR For African Americans > 60 (> 60); eGFR For Non-African Americans > 60 (> 60)
[2019-06-19 03:14] LABS: Folate 11.9 ng/mL (3.0-16.0)
[2019-06-19] MEDS: Ipratropium/Albuterol Neb 3 ML IH SCH ×6 (04:18→23:59)
[2019-06-19] MEDS: *HR* Heparin 5,000 UNIT/ML VIAL SQ SCH ×3 (05:19→21:24)
[2019-06-19] MEDS: Budesonide/Formoterol 160/4.5 1 PUFF INH IH SCH ×2 (07:42→20:23)
[2019-06-19] MEDS: Acyclovir 200 MG CAPSULE PO SCH ×2 (07:53→21:24)
[2019-06-19] MEDS: *HR* Acetylcysteine 20% 600 MG/3 ML ORAL SYRINGE PO SCH ×2 (07:53→21:25)
[2019-06-19] MEDS: Doxycycline 100 MG CAPSULE PO SCH ×2 (07:53→21:24)
[2019-06-19] MEDS: Lactobacillus 1 EACH CAP.SPRINK PO SCH (07:53)
[2019-06-19] MEDS: predniSONE 20 MG TABLET PO SCH (07:53)
[2019-06-19] MEDS: (Roflumilast [Daliresp] 500 MCG) PO SCH (07:53)
[2019-06-20] MEDS: Ipratropium/Albuterol Neb 3 ML IH SCH ×6 (04:00→23:58)
[2019-06-20] MEDS: *HR* Heparin 5,000 UNIT/ML VIAL SQ SCH ×3 (05:12→20:23)
[2019-06-20] MEDS: Budesonide/Formoterol 160/4.5 1 PUFF INH IH SCH ×2 (07:12→20:11)
[2019-06-20] MEDS: Lactobacillus 1 EACH CAP.SPRINK PO SCH (08:55)
[2019-06-20] MEDS: Acyclovir 200 MG CAPSULE PO SCH ×2 (08:55→20:23)
[2019-06-20] MEDS: predniSONE 20 MG TABLET PO SCH (08:55)
[2019-06-20] MEDS: Doxycycline 100 MG CAPSULE PO SCH (08:55)
[2019-06-20] MEDS: *HR* Acetylcysteine 20% 600 MG/3 ML ORAL SYRINGE PO SCH ×2 (08:56→20:23)
[2019-06-20] MEDS: (Roflumilast [Daliresp] 500 MCG) PO SCH (08:57)
[2019-06-21 02:44] LABS: Hematocrit 37.3 % (37.5-50.1); Hemoglobin 12.1 g/dL (12.9-16.9); Mean Corpuscular HGB Conc 32.4 g/dL (31.6-35.5); Mean Corpuscular Hemoglobin 33.8 pg (28.0-33.3); Mean Corpuscular Volume 104.2 fL (83.0-100.0); Mean Platelet Volume 9.3 fL (9.4-12.4); Platelet Count 476 K/mcL (140-400); Red Blood Count 3.58 M/mcL (4.19-5.50); Red Cell Distribution Width 14.9 % (11.5-14.5); White Blood Count 12.3 K/mcL (4.3-11.1)
[2019-06-21 03:06] LABS: BUN/Creatinine Ratio 34 (6-26); Blood Urea Nitrogen 25 mg/dL (8-23); Calcium 9.5 mg/dL (8.6-10.3); Carbon Dioxide 38 mEq/L (23-29); Chloride 95 mEq/L (98-107); Glucose 141 mg/dL (70-105); Osmolality,Calculated 283 (280-300); Potassium 3.8 mEq/L (3.5-5.1); Sodium 133 mEq/L (136-145); eGFR For African Americans > 60 (> 60); eGFR For Non-African Americans > 60 (> 60)
[2019-06-21] MEDS: Ipratropium/Albuterol Neb 3 ML IH SCH ×3 (03:43→11:45)
[2019-06-21] MEDS: *HR* Heparin 5,000 UNIT/ML VIAL SQ SCH (04:59)
[2019-06-21] MEDS: Budesonide/Formoterol 160/4.5 1 PUFF INH IH SCH (07:49)
[2019-06-21] MEDS: Lactobacillus 1 EACH CAP.SPRINK PO SCH (08:50)
[2019-06-21] MEDS: Acyclovir 200 MG CAPSULE PO SCH (08:50)
[2019-06-21] MEDS: *HR* Acetylcysteine 20% 600 MG/3 ML ORAL SYRINGE PO SCH (08:51)
[2019-06-21] MEDS ORDERED: predniSONE 20 MG TABLET PO SCH (09:00)
[2019-06-21 11:24] VITALS: BP 119/70
[2019-06-21] MEDS: (Roflumilast [Daliresp] 500 MCG) PO SCH (12:07)
== END 2019-06-21 16:31 | disposition home health service (06) | DRG 871 ==
LOC: EMEROOARM 23:36 → 3NENU 23:36 → SUATTDRO 06-11 10:55 → 2NENU 06-15 10:41
PROVIDERS: ADMIT Internal Medicine; ATTEND Family Medicine
PROC: IRDRAIN (2019-06-15 12:00)

== ENCOUNTER 2020-06-21 13:58 | Inpatient (IN) ==
[2020-06-21] MEDS ORDERED: Dexamethasone 4 MG/ML VIAL IVP ONE (14:48)
[2020-06-21] MEDS ORDERED: Ipratropium/Albuterol Neb 3 ML IH ONE (14:49)
[2020-06-21] MEDS ORDERED: Azithromycin 500 MG in D5% in Water 250 ML IVPB ONE (14:53)
[2020-06-21 15:05] LABS: Basophils # 0.1 K/mcL (0.0-0.2); Basophils % 0.6 %; Eosinophils # 0.2 K/mcL (0.0-0.6); Eosinophils % 2.3 %; Hematocrit 42.2 % (37.5-50.1); Hemoglobin 13.9 g/dL (12.9-16.9); Immature Granulocytes % 0.7 % (0-4); Lymphocytes # 0.7 K/mcL (0.6-4.6); Mean Corpuscular HGB Conc 32.9 g/dL (31.6-35.5); Mean Corpuscular Hemoglobin 33.3 pg (28.0-33.3); Monocytes # 1.3 K/mcL (0.0-1.3); Monocytes % 15.6 %; Neutrophils # 5.9 K/mcL (1.6-8.9); Platelet Count 282 K/mcL (140-400); Red Blood Count 4.18 M/mcL (4.19-5.50); Segmented Neutrophils % 71.8 %; White Blood Count 8.3 K/mcL (4.3-11.1)
[2020-06-21 15:35] LABS: BUN/Creatinine Ratio 16 (6-26); Blood Urea Nitrogen 15 mg/dL (8-23); Calcium 9.1 mg/dL (8.6-10.3); Carbon Dioxide 26 mEq/L (23-29); Chloride 87 mEq/L (98-107); Glucose 98 mg/dL (70-105); Osmolality,Calculated 259 (280-300); Potassium 3.9 mEq/L (3.5-5.1); Sodium 124 mEq/L (136-145); Troponin I < 0.03 ng/mL (< 0.04); eGFR For African Americans > 60 (> 60); eGFR For Non-African Americans > 60 (> 60)
[2020-06-21 15:47] LABS: VBG HCO3 27 mEq/L (21-27); VBG PCO2 46 mmHg (41-51); VBG PH 7.37 pH Units (7.32-7.42); VBG PO2 45 mmHg (25-50)
[2020-06-21 16:43] LABS: Adenovirus Not Detected (Not Detect); Bordetella Pertussis Not Detected (Not Detect); Chlamydophila pneumoniae Not Detected (Not Detect); Coronavirus 229E Not Detected (Not Detect); Coronavirus HKU1 Not Detected (Not Detect); Coronavirus NL63 Not Detected (Not Detect); Coronavirus OC43 Not Detected (Not Detect); Human Metapneumovirus Not Detected (Not Detect); Human Rhinovirus/Enterovirus Not Detected (Not Detect); Influenza A Subtype 2009 H1 Not Detected (Not Detect); Influenza B Not Detected (Not Detect); Mycoplasma pneumoniae Not Detected (Not Detect); Parainfluenza Virus 1 Not Detected (Not Detect); Parainfluenza Virus 2 Not Detected (Not Detect); Parainfluenza Virus 3 Not Detected (Not Detect); Parainfluenza Virus 4 Not Detected (Not Detect); Respiratory Syncytial Virus Not Detected (Not Detect); SARS-CoV-2 DETECTED (Not Detect)
[2020-06-21] MEDS ORDERED: Ondansetron 4 MG/2 ML VIAL IVP PRN (17:09)
[2020-06-21] MEDS ORDERED: Naloxone 0.4 MG/ML INJ IVP PRN (17:09)
[2020-06-21] MEDS: Acyclovir 200 MG CAPSULE PO SCH (20:13)
[2020-06-21] MEDS: *HR* Acetylcysteine 20% 600 MG/3 ML ORAL SYRINGE PO SCH (20:13)
[2020-06-21] MEDS: Budesonide/Formoterol 160/4.5 1 PUFF INH IH SCH (21:16)
[2020-06-21] MEDS: Azithromycin 250 MG TABLET PO SCH (21:23)
[2020-06-22] MEDS ORDERED: methylPREDNISolone 125 MG/2 ML VIAL IVP ONE
[2020-06-22] MEDS: Tiotropium 18 MCG inhalation IH SCH (07:57)
[2020-06-22] MEDS: Budesonide/Formoterol 160/4.5 1 PUFF INH IH SCH ×2 (07:58→22:43)
[2020-06-22 08:49] LABS: Hematocrit 43.5 % (37.5-50.1); Hemoglobin 14.4 g/dL (12.9-16.9); Mean Corpuscular HGB Conc 33.1 g/dL (31.6-35.5); Mean Corpuscular Hemoglobin 33.3 pg (28.0-33.3); Mean Corpuscular Volume 100.7 fL (83.0-100.0); Mean Platelet Volume 9.7 fL (9.4-12.4); Platelet Count 296 K/mcL (140-400); Red Blood Count 4.32 M/mcL (4.19-5.50); Red Cell Distribution Width 13.8 % (11.5-14.5); White Blood Count 8.1 K/mcL (4.3-11.1)
[2020-06-22 09:01] LABS: Alkaline Phosphatase 64 Units/L (34-104); BUN/Creatinine Ratio 19 (6-26); Bilirubin,Total 0.3 mg/dL (0.3-1.0); Blood Urea Nitrogen 16 mg/dL (8-23); Calcium 9.2 mg/dL (8.6-10.3); Carbon Dioxide 30 mEq/L (23-29); Chloride 91 mEq/L (98-107); Glucose 131 mg/dL (70-105); Magnesium 2.2 mg/dL (1.6-2.6); Osmolality,Calculated 269 (280-300); Sodium 128 mEq/L (136-145); eGFR For African Americans > 60 (> 60); eGFR For Non-African Americans > 60 (> 60)
[2020-06-22 09:02] LABS: Alanine Aminotransferase 24 Units/L (7-52); Albumin/Globulin Ratio 1.2 (1.1-2.2); Aspartate Amino Transferase 27 Units/L (13-39); Globulin 3.4 g/dL (2.4-3.5); Total Protein 7.4 g/dL (6.4-8.9)
[2020-06-22] MEDS: Acyclovir 200 MG CAPSULE PO SCH ×2 (09:32→21:21)
[2020-06-22] MEDS: Azithromycin 250 MG TABLET PO SCH (09:32)
[2020-06-22] MEDS: Dexamethasone 4 MG/ML VIAL IVP SCH (09:33)
[2020-06-22] MEDS: (Roflumilast [Daliresp] 500 MCG) PO SCH (09:33)
[2020-06-22] MEDS ORDERED: Isovue-370 500 ML BOTTLE IVP ONE (10:49)
[2020-06-22] MEDS: *HR* Acetylcysteine 20% 600 MG/3 ML ORAL SYRINGE PO SCH ×2 (11:43→22:47)
[2020-06-22] MEDS: *HR* Enoxaparin 40 MG/0.4 ML SYRINGE SQ SCH (11:43)
[2020-06-22] MEDS: Lactobacillus 1 EACH CAP.SPRINK PO SCH ×2 (16:38→21:21)
[2020-06-22] MEDS ORDERED: Remdesivir 200 MG in 0.9 % Sodium Chloride 100 ML IVPB ONE (17:00)
[2020-06-22] MEDS ORDERED: *HR* Heparin 5,000 UNIT/ML VIAL SQ SCH (18:00)
[2020-06-23] MEDS: *HR* Enoxaparin 40 MG/0.4 ML SYRINGE SQ SCH (05:29)
[2020-06-23 07:00] LABS: Prothrombin Time 11.5 Seconds (9.4-12.1)
[2020-06-23 07:01] LABS: Hematocrit 41.6 % (37.5-50.1); Hemoglobin 13.7 g/dL (12.9-16.9); Mean Corpuscular HGB Conc 32.9 g/dL (31.6-35.5); Mean Corpuscular Hemoglobin 32.7 pg (28.0-33.3); Mean Corpuscular Volume 99.3 fL (83.0-100.0); Mean Platelet Volume 10.1 fL (9.4-12.4); Platelet Count 316 K/mcL (140-400); Red Blood Count 4.19 M/mcL (4.19-5.50); Red Cell Distribution Width 13.7 % (11.5-14.5); White Blood Count 10.6 K/mcL (4.3-11.1)
[2020-06-23 07:11] LABS: Alanine Aminotransferase 24 Units/L (7-52); Albumin 3.7 g/dL (3.5-5.7); Albumin/Globulin Ratio 1.1 (1.1-2.2); Alkaline Phosphatase 59 Units/L (34-104); Aspartate Amino Transferase 26 Units/L (13-39); BUN/Creatinine Ratio 26 (6-26); Bilirubin,Total 0.2 mg/dL (0.3-1.0); Blood Urea Nitrogen 20 mg/dL (8-23); Calcium 9.4 mg/dL (8.6-10.3); Carbon Dioxide 32 mEq/L (23-29); Chloride 93 mEq/L (98-107); Globulin 3.3 g/dL (2.4-3.5); Glucose 111 mg/dL (70-105); Osmolality,Calculated 273 (280-300); Potassium 4.6 mEq/L (3.5-5.1); Sodium 130 mEq/L (136-145); eGFR For African Americans > 60 (> 60); eGFR For Non-African Americans > 60 (> 60)
[2020-06-23] MEDS: Tiotropium 18 MCG inhalation IH SCH (09:20)
[2020-06-23] MEDS: Budesonide/Formoterol 160/4.5 1 PUFF INH IH SCH ×2 (09:20→21:21)
[2020-06-23] MEDS: Lactobacillus 1 EACH CAP.SPRINK PO SCH ×2 (11:06→20:38)
[2020-06-23] MEDS: Dexamethasone 4 MG/ML VIAL IVP SCH (11:06)
[2020-06-23] MEDS: *HR* Acetylcysteine 20% 600 MG/3 ML ORAL SYRINGE PO SCH ×2 (11:06→20:41)
[2020-06-23] MEDS: (Roflumilast [Daliresp] 500 MCG) PO SCH (11:07)
[2020-06-23] MEDS: Acyclovir 200 MG CAPSULE PO SCH ×2 (11:08→20:39)
[2020-06-23] MEDS: Azithromycin 250 MG TABLET PO SCH (11:08)
[2020-06-23] MEDS: Remdesivir 100 MG in 0.9 % Sodium Chloride 100 ML IVPB SCH (17:54)
[2020-06-24 03:41] LABS: Hematocrit 40.2 % (37.5-50.1); Hemoglobin 13.3 g/dL (12.9-16.9); Mean Corpuscular HGB Conc 33.1 g/dL (31.6-35.5); Mean Corpuscular Hemoglobin 33.1 pg (28.0-33.3); Mean Platelet Volume 9.8 fL (9.4-12.4); Platelet Count 292 K/mcL (140-400); Red Blood Count 4.02 M/mcL (4.19-5.50); Red Cell Distribution Width 13.8 % (11.5-14.5); White Blood Count 5.9 K/mcL (4.3-11.1)
[2020-06-24 03:49] LABS: Prothrombin Time 11.9 Seconds (9.4-12.1)
[2020-06-24 03:56] LABS: Alanine Aminotransferase 34 Units/L (7-52); Albumin 3.5 g/dL (3.5-5.7); Albumin/Globulin Ratio 1.2 (1.1-2.2); Alkaline Phosphatase 54 Units/L (34-104); Aspartate Amino Transferase 28 Units/L (13-39); BUN/Creatinine Ratio 32 (6-26); Bilirubin,Total 0.2 mg/dL (0.3-1.0); Blood Urea Nitrogen 24 mg/dL (8-23); Carbon Dioxide 32 mEq/L (23-29); Chloride 94 mEq/L (98-107); Glucose 158 mg/dL (70-105); Osmolality,Calculated 281 (280-300); Potassium 4.2 mEq/L (3.5-5.1); Sodium 132 mEq/L (136-145); Total Protein 6.5 g/dL (6.4-8.9); eGFR For African Americans > 60 (> 60); eGFR For Non-African Americans > 60 (> 60)
[2020-06-24] MEDS: *HR* Enoxaparin 40 MG/0.4 ML SYRINGE SQ SCH (06:06)
[2020-06-24] MEDS ORDERED: NON-FORMULARY MEDICATION 1 EACH EACH (Roflumilast [Daliresp] 500 MCG) PO SCH (09:00)
[2020-06-24] MEDS: Tiotropium 18 MCG inhalation IH SCH (09:17)
[2020-06-24] MEDS: Budesonide/Formoterol 160/4.5 1 PUFF INH IH SCH ×2 (09:17→21:16)
[2020-06-24] MEDS: Azithromycin 250 MG TABLET PO SCH (09:18)
[2020-06-24] MEDS: Acyclovir 200 MG CAPSULE PO SCH ×2 (09:18→20:06)
[2020-06-24] MEDS: *HR* Acetylcysteine 20% 600 MG/3 ML ORAL SYRINGE PO SCH ×2 (09:18→20:06)
[2020-06-24] MEDS: Lactobacillus 1 EACH CAP.SPRINK PO SCH ×2 (09:18→20:06)
[2020-06-24] MEDS: Dexamethasone 4 MG/ML VIAL IVP SCH (09:18)
[2020-06-24] MEDS: Furosemide 20 MG/2 ML VIAL IVP SCH (09:19)
[2020-06-24] MEDS: (Roflumilast [Daliresp] 500 MCG) PO SCH (09:46)
[2020-06-24] MEDS: Fluticasone Propionate Nasal 50 MCG/SPRAY BOTTLE NS SCH (15:34)
[2020-06-24] MEDS: Remdesivir 100 MG in 0.9 % Sodium Chloride 100 ML IVPB SCH (16:55)
[2020-06-25] MEDS: *HR* Enoxaparin 40 MG/0.4 ML SYRINGE SQ SCH (06:10)
[2020-06-25 07:05] LABS: INR 1.1; Prothrombin Time 12.4 Seconds (9.4-12.1)
[2020-06-25 07:18] LABS: Hematocrit 40.6 % (37.5-50.1); Hemoglobin 13.1 g/dL (12.9-16.9); Mean Corpuscular HGB Conc 32.3 g/dL (31.6-35.5); Mean Corpuscular Hemoglobin 32.2 pg (28.0-33.3); Mean Corpuscular Volume 99.8 fL (83.0-100.0); Mean Platelet Volume 10.2 fL (9.4-12.4); Platelet Count 297 K/mcL (140-400); Red Blood Count 4.07 M/mcL (4.19-5.50); Red Cell Distribution Width 13.9 % (11.5-14.5); White Blood Count 8.6 K/mcL (4.3-11.1)
[2020-06-25] MEDS: Acyclovir 200 MG CAPSULE PO SCH ×2 (07:26→20:06)
[2020-06-25] MEDS: Dexamethasone 4 MG/ML VIAL IVP SCH (07:26)
[2020-06-25] MEDS: Furosemide 20 MG/2 ML VIAL IVP SCH (07:26)
[2020-06-25] MEDS: Lactobacillus 1 EACH CAP.SPRINK PO SCH ×3 (07:26→20:06)
[2020-06-25] MEDS: *HR* Acetylcysteine 20% 600 MG/3 ML ORAL SYRINGE PO SCH ×2 (07:27→20:07)
[2020-06-25 07:39] LABS: Alanine Aminotransferase 41 Units/L (7-52); Albumin 3.4 g/dL (3.5-5.7); Albumin/Globulin Ratio 1.1 (1.1-2.2); Alkaline Phosphatase 52 Units/L (34-104); Aspartate Amino Transferase 25 Units/L (13-39); BUN/Creatinine Ratio 41 (6-26); Bilirubin,Total 0.2 mg/dL (0.3-1.0); Blood Urea Nitrogen 28 mg/dL (8-23); Calcium 9.1 mg/dL (8.6-10.3); Carbon Dioxide 32 mEq/L (23-29); Chloride 97 mEq/L (98-107); Globulin 3.1 g/dL (2.4-3.5); Glucose 112 mg/dL (70-105); Osmolality,Calculated 288 (280-300); Potassium 4.1 mEq/L (3.5-5.1); Sodium 136 mEq/L (136-145); Total Protein 6.5 g/dL (6.4-8.9); eGFR For African Americans > 60 (> 60); eGFR For Non-African Americans > 60 (> 60)
[2020-06-25] MEDS: (Roflumilast [Daliresp] 500 MCG) PO SCH (07:42)
[2020-06-25] MEDS: Tiotropium 18 MCG inhalation IH SCH (11:50)
[2020-06-25] MEDS: Budesonide/Formoterol 160/4.5 1 PUFF INH IH SCH ×2 (11:50→21:57)
[2020-06-25] MEDS ORDERED: Benzonatate 100 MG CAPSULE PO PRN (12:12)
[2020-06-25] MEDS ORDERED: 0.9 % Sodium Chloride 250 ML ONE (12:41)
[2020-06-25] MEDS: Remdesivir 100 MG in 0.9 % Sodium Chloride 100 ML IVPB SCH (16:58)
[2020-06-26 02:51] LABS: Hematocrit 40.3 % (37.5-50.1); Hemoglobin 13.2 g/dL (12.9-16.9); Mean Corpuscular HGB Conc 32.8 g/dL (31.6-35.5); Mean Corpuscular Hemoglobin 32.7 pg (28.0-33.3); Mean Corpuscular Volume 99.8 fL (83.0-100.0); Mean Platelet Volume 9.8 fL (9.4-12.4); Platelet Count 318 K/mcL (140-400); Red Blood Count 4.04 M/mcL (4.19-5.50); Red Cell Distribution Width 13.9 % (11.5-14.5)
[2020-06-26 02:53] LABS: INR 1.1; Prothrombin Time 12.4 Seconds (9.4-12.1)
[2020-06-26 03:02] LABS: Alanine Aminotransferase 39 Units/L (7-52); Albumin 3.4 g/dL (3.5-5.7); Albumin/Globulin Ratio 1.1 (1.1-2.2); Alkaline Phosphatase 55 Units/L (34-104); Aspartate Amino Transferase 20 Units/L (13-39); BUN/Creatinine Ratio 41 (6-26); Bilirubin,Total 0.3 mg/dL (0.3-1.0); Blood Urea Nitrogen 28 mg/dL (8-23); Calcium 8.6 mg/dL (8.6-10.3); Carbon Dioxide 34 mEq/L (23-29); Chloride 98 mEq/L (98-107); Glucose 116 mg/dL (70-105); Osmolality,Calculated 286 (280-300); Sodium 135 mEq/L (136-145); Total Protein 6.4 g/dL (6.4-8.9); eGFR For African Americans > 60 (> 60); eGFR For Non-African Americans > 60 (> 60)
[2020-06-26] MEDS: *HR* Enoxaparin 40 MG/0.4 ML SYRINGE SQ SCH (05:45)
[2020-06-26] MEDS: Lactobacillus 1 EACH CAP.SPRINK PO SCH ×2 (08:02→21:18)
[2020-06-26] MEDS: Acyclovir 200 MG CAPSULE PO SCH ×2 (08:03→21:16)
[2020-06-26] MEDS: Dexamethasone 4 MG/ML VIAL IVP SCH (08:03)
[2020-06-26] MEDS: Furosemide 20 MG/2 ML VIAL IVP SCH (08:03)
[2020-06-26] MEDS: Fluticasone Propionate Nasal 50 MCG/SPRAY BOTTLE NS SCH (08:04)
[2020-06-26] MEDS: (Roflumilast [Daliresp] 500 MCG) PO SCH (08:58)
[2020-06-26] MEDS: Budesonide/Formoterol 160/4.5 1 PUFF INH IH SCH ×2 (09:39→22:13)
[2020-06-26] MEDS: Tiotropium 18 MCG inhalation IH SCH (09:41)
[2020-06-26] MEDS ORDERED: 0.9 % Sodium Chloride 500 ML ONE (11:33)
[2020-06-26] MEDS: Remdesivir 100 MG in 0.9 % Sodium Chloride 100 ML IVPB SCH (17:23)
[2020-06-26] MEDS: *HR* Acetylcysteine 20% 600 MG/3 ML ORAL SYRINGE PO SCH (21:21)
[2020-06-27 05:58] LABS: Basophils % 0.3 %; Hemoglobin 12.8 g/dL (12.9-16.9); Immature Granulocytes % 0.6 % (0-4); Lymphocytes % 9.2 %; Mean Platelet Volume 9.8 fL (9.4-12.4); Monocytes # 1.5 K/mcL (0.0-1.3); Monocytes % 14.1 %; Platelet Count 370 K/mcL (140-400); Red Cell Distribution Width 13.8 % (11.5-14.5); Segmented Neutrophils % 75.8 %; White Blood Count 10.6 K/mcL (4.3-11.1)
[2020-06-27] MEDS: *HR* Enoxaparin 40 MG/0.4 ML SYRINGE SQ SCH (06:10)
[2020-06-27 06:14] LABS: Alanine Aminotransferase 34 Units/L (7-52); Albumin 3.4 g/dL (3.5-5.7); Albumin/Globulin Ratio 1.1 (1.1-2.2); Alkaline Phosphatase 50 Units/L (34-104); Aspartate Amino Transferase 15 Units/L (13-39); BUN/Creatinine Ratio 39 (6-26); Bilirubin,Total 0.4 mg/dL (0.3-1.0); Blood Urea Nitrogen 26 mg/dL (8-23); Calcium 8.9 mg/dL (8.6-10.3); Carbon Dioxide 36 mEq/L (23-29); Chloride 95 mEq/L (98-107); Glucose 97 mg/dL (70-105); Osmolality,Calculated 285 (280-300); Potassium 3.7 mEq/L (3.5-5.1); Sodium 135 mEq/L (136-145); Total Protein 6.4 g/dL (6.4-8.9); eGFR For African Americans > 60 (> 60); eGFR For Non-African Americans > 60 (> 60)
[2020-06-27] MEDS: Dexamethasone 4 MG/ML VIAL IVP SCH (08:47)
[2020-06-27] MEDS: Furosemide 20 MG/2 ML VIAL IVP SCH (08:48)
[2020-06-27] MEDS: *HR* Acetylcysteine 20% 600 MG/3 ML ORAL SYRINGE PO SCH ×3 (08:48→19:58)
[2020-06-27] MEDS: Acyclovir 200 MG CAPSULE PO SCH ×2 (08:48→19:58)
[2020-06-27] MEDS: Lactobacillus 1 EACH CAP.SPRINK PO SCH ×2 (08:48→19:58)
[2020-06-27] MEDS: Fluticasone Propionate Nasal 50 MCG/SPRAY BOTTLE NS SCH (08:53)
[2020-06-27] MEDS: Budesonide/Formoterol 160/4.5 1 PUFF INH IH SCH ×2 (10:45→21:59)
[2020-06-27] MEDS: Tiotropium 18 MCG inhalation IH SCH (10:45)
[2020-06-27] MEDS: (Roflumilast [Daliresp] 500 MCG) PO SCH (12:38)
[2020-06-28 05:45] LABS: Basophils % 0.2 %; Eosinophils % 0.1 %; Hematocrit 40.7 % (37.5-50.1); Hemoglobin 13.4 g/dL (12.9-16.9); Immature Granulocytes % 1.1 % (0-4); Lymphocytes # 0.8 K/mcL (0.6-4.6); Lymphocytes % 9.3 %; Mean Corpuscular HGB Conc 32.9 g/dL (31.6-35.5); Mean Corpuscular Hemoglobin 33.1 pg (28.0-33.3); Mean Corpuscular Volume 100.5 fL (83.0-100.0); Mean Platelet Volume 9.8 fL (9.4-12.4); Monocytes % 12.3 %; Neutrophils # 6.5 K/mcL (1.6-8.9); Platelet Count 415 K/mcL (140-400); Red Blood Count 4.05 M/mcL (4.19-5.50); Red Cell Distribution Width 13.6 % (11.5-14.5); White Blood Count 8.5 K/mcL (4.3-11.1)
[2020-06-28] MEDS: *HR* Enoxaparin 40 MG/0.4 ML SYRINGE SQ SCH (05:47)
[2020-06-28 05:49] LABS: INR 1.1; Prothrombin Time 12.2 Seconds (9.4-12.1)
[2020-06-28 05:59] LABS: BUN/Creatinine Ratio 37 (6-26); Blood Urea Nitrogen 27 mg/dL (8-23); Carbon Dioxide 34 mEq/L (23-29); Chloride 97 mEq/L (98-107); Glucose 160 mg/dL (70-105); Osmolality,Calculated 293 (280-300); Potassium 3.6 mEq/L (3.5-5.1); Sodium 137 mEq/L (136-145); eGFR For African Americans > 60 (> 60); eGFR For Non-African Americans > 60 (> 60)
[2020-06-28] MEDS ORDERED: Cefepime HCl 1,000 MG in 0.9 % Sodium Chloride Mini Bag 100 ML IVPB SCH (08:00)
[2020-06-28] MEDS ORDERED: Saline Nasal Spray 44 ML BOTTLE NS PRN (09:38)
[2020-06-28] MEDS: Budesonide/Formoterol 160/4.5 1 PUFF INH IH SCH ×2 (09:40→22:20)
[2020-06-28] MEDS: Tiotropium 18 MCG inhalation IH SCH (09:40)
[2020-06-28] MEDS: Acyclovir 200 MG CAPSULE PO SCH ×2 (10:09→20:21)
[2020-06-28] MEDS: Fluticasone Propionate Nasal 50 MCG/SPRAY BOTTLE NS SCH (10:10)
[2020-06-28] MEDS: *HR* Acetylcysteine 20% 600 MG/3 ML ORAL SYRINGE PO SCH ×2 (10:10→22:41)
[2020-06-28] MEDS: Furosemide 20 MG/2 ML VIAL IVP SCH (10:10)
[2020-06-28] MEDS: Dexamethasone 4 MG/ML VIAL IVP SCH (10:10)
[2020-06-28] MEDS: (Roflumilast [Daliresp] 500 MCG) PO SCH (10:10)
[2020-06-28] MEDS: Lactobacillus 1 EACH CAP.SPRINK PO SCH ×2 (10:10→20:21)
[2020-06-28] MEDS: levoFLOXacin 750 MG/150 ML 750 MG/150 ML BAG IVPB SCH (17:04)
[2020-06-29] MEDS: *HR* Enoxaparin 40 MG/0.4 ML SYRINGE SQ SCH (05:59)
[2020-06-29 07:32] LABS: Hematocrit 39.9 % (37.5-50.1); Hemoglobin 13.2 g/dL (12.9-16.9); Mean Corpuscular HGB Conc 33.1 g/dL (31.6-35.5); Mean Corpuscular Hemoglobin 33.5 pg (28.0-33.3); Mean Corpuscular Volume 101.3 fL (83.0-100.0); Mean Platelet Volume 9.6 fL (9.4-12.4); Platelet Count 504 K/mcL (140-400); Red Blood Count 3.94 M/mcL (4.19-5.50); Red Cell Distribution Width 13.9 % (11.5-14.5); White Blood Count 9.3 K/mcL (4.3-11.1)
[2020-06-29 07:52] LABS: BUN/Creatinine Ratio 41 (6-26); Blood Urea Nitrogen 28 mg/dL (8-23); Calcium 9.1 mg/dL (8.6-10.3); Carbon Dioxide 32 mEq/L (23-29); Chloride 99 mEq/L (98-107); Glucose 100 mg/dL (70-105); Osmolality,Calculated 288 (280-300); Sodium 136 mEq/L (136-145); eGFR For African Americans > 60 (> 60); eGFR For Non-African Americans > 60 (> 60)
[2020-06-29] MEDS: *HR* Acetylcysteine 20% 600 MG/3 ML ORAL SYRINGE PO SCH ×2 (08:27→22:26)
[2020-06-29] MEDS: Furosemide 20 MG/2 ML VIAL IVP SCH (08:27)
[2020-06-29] MEDS: Dexamethasone 4 MG/ML VIAL IVP SCH (08:28)
[2020-06-29] MEDS: Lactobacillus 1 EACH CAP.SPRINK PO SCH ×2 (08:28→22:26)
[2020-06-29] MEDS: Acyclovir 200 MG CAPSULE PO SCH ×2 (08:28→22:26)
[2020-06-29] MEDS: (Roflumilast [Daliresp] 500 MCG) PO SCH (08:29)
[2020-06-29] MEDS: Fluticasone Propionate Nasal 50 MCG/SPRAY BOTTLE NS SCH (08:51)
[2020-06-29] MEDS: Tiotropium 18 MCG inhalation IH SCH (10:06)
[2020-06-29] MEDS: Budesonide/Formoterol 160/4.5 1 PUFF INH IH SCH ×2 (10:06→22:15)
[2020-06-29] MEDS: levoFLOXacin 750 MG/150 ML 750 MG/150 ML BAG IVPB SCH (17:47)
[2020-06-30] MEDS: *HR* Enoxaparin 40 MG/0.4 ML SYRINGE SQ SCH (05:56)
[2020-06-30] MEDS: Tiotropium 18 MCG inhalation IH SCH (07:56)
[2020-06-30] MEDS: Budesonide/Formoterol 160/4.5 1 PUFF INH IH SCH ×2 (07:56→21:41)
[2020-06-30] MEDS: Acyclovir 200 MG CAPSULE PO SCH ×2 (09:01→20:16)
[2020-06-30] MEDS: Furosemide 20 MG/2 ML VIAL IVP SCH (09:01)
[2020-06-30] MEDS: Lactobacillus 1 EACH CAP.SPRINK PO SCH ×2 (09:02→20:16)
[2020-06-30] MEDS: Dexamethasone 4 MG/ML VIAL IVP SCH (09:02)
[2020-06-30] MEDS: Fluticasone Propionate Nasal 50 MCG/SPRAY BOTTLE NS SCH (09:26)
[2020-06-30] MEDS: (Roflumilast [Daliresp] 500 MCG) PO SCH (09:26)
[2020-06-30] MEDS: *HR* Acetylcysteine 20% 600 MG/3 ML ORAL SYRINGE PO SCH ×2 (10:47→20:16)
[2020-06-30] MEDS: levoFLOXacin 750 MG/150 ML 750 MG/150 ML BAG IVPB SCH (16:50)
[2020-07-01 05:18] LABS: Hematocrit 37.8 % (37.5-50.1); Hemoglobin 12.5 g/dL (12.9-16.9); Mean Corpuscular HGB Conc 33.1 g/dL (31.6-35.5); Mean Corpuscular Hemoglobin 32.5 pg (28.0-33.3); Mean Corpuscular Volume 98.2 fL (83.0-100.0); Mean Platelet Volume 8.8 fL (9.4-12.4); Platelet Count 612 K/mcL (140-400); Red Blood Count 3.85 M/mcL (4.19-5.50); Red Cell Distribution Width 13.8 % (11.5-14.5)
[2020-07-01 05:36] LABS: BUN/Creatinine Ratio 37 (6-26); Blood Urea Nitrogen 28 mg/dL (8-23); Calcium 8.9 mg/dL (8.6-10.3); Carbon Dioxide 32 mEq/L (23-29); Chloride 98 mEq/L (98-107); Glucose 95 mg/dL (70-105); Osmolality,Calculated 287 (280-300); Potassium 3.9 mEq/L (3.5-5.1); Sodium 136 mEq/L (136-145); eGFR For African Americans > 60 (> 60); eGFR For Non-African Americans > 60 (> 60)
[2020-07-01] MEDS: *HR* Enoxaparin 40 MG/0.4 ML SYRINGE SQ SCH (06:05)
[2020-07-01] MEDS: Dexamethasone 4 MG/ML VIAL IVP SCH (08:26)
[2020-07-01] MEDS: Furosemide 20 MG/2 ML VIAL IVP SCH (08:27)
[2020-07-01] MEDS: Acyclovir 200 MG CAPSULE PO SCH (08:27)
[2020-07-01] MEDS: Lactobacillus 1 EACH CAP.SPRINK PO SCH (08:27)
[2020-07-01] MEDS: *HR* Acetylcysteine 20% 600 MG/3 ML ORAL SYRINGE PO SCH (08:27)
[2020-07-01] MEDS: (Roflumilast [Daliresp] 500 MCG) PO SCH (08:28)
[2020-07-01] MEDS: Fluticasone Propionate Nasal 50 MCG/SPRAY BOTTLE NS SCH (08:28)
[2020-07-01] MEDS: Budesonide/Formoterol 160/4.5 1 PUFF INH IH SCH (11:40)
[2020-07-01] MEDS: Tiotropium 18 MCG inhalation IH SCH (11:40)
[2020-07-01 15:34] VITALS: BP 117/55
[2020-07-02] MEDS ORDERED: dexAMETHasone 4 MG TABLET PO SCH (09:00)
== END 2020-07-01 17:16 | disposition home or self-care (01) | DRG 177 ==
LOC: EMEROOARM 13:58 → CDU 20:06 → 2NENU 06-22 18:28 → 3BNU 06-29 14:22
PROVIDERS: ADMIT Internal Medicine; ATTEND Internal Medicine